=== PATIENT | female | born 1965 | race Caucasian/White ===

== ENCOUNTER 2020-06-08 11:46 | Inpatient (IN) | payer OTHER ==
[2020-06-08 12:54] VITALS: BMI 40.8
[2020-06-08] MEDS ORDERED: MENTHOL/PHENOL 1 EACH UD MM PRN (15:35)
[2020-06-08] MEDS ORDERED: chlordiazePOXIDE HCL 25 MG CAPSULE PO PRN (15:35)
[2020-06-08] MEDS ORDERED: IBUPROFEN 400 MG TABLET (FP) PO PRN (15:35)
[2020-06-08] MEDS ORDERED: BISMUTH SUBSALICYLATE 262 MG/15 ML BTL PO PRN (15:35)
[2020-06-08] MEDS ORDERED: MAGNESIUM HYDROX 2400MG/30ML ORAL SUSPENSION 30 ML CUP PO PRN (15:35)
[2020-06-08] MEDS ORDERED: MAG HYDROX/AL HYDROX/SIMETH 30 ML UNIT-DOSE CUP PO PRN (15:35)
[2020-06-08] MEDS ORDERED: ACETAMINOPHEN 325 MG TABLET (FP) PO PRN (15:35)
[2020-06-08] MEDS ORDERED: NICOTINE POLACRILEX 2 MG GUM BUC PRN (15:35)
[2020-06-08] MEDS ORDERED: METHOCARBAMOL 500 MG TABLET PO PRN (15:35)
[2020-06-08] MEDS ORDERED: MAGNESIUM CITRATE 300 ML BOTTLE PO PRN (15:35)
[2020-06-08] MEDS: chlordiazePOXIDE HCL 25 MG CAPSULE PO SCH ×2 (18:07→22:39)
[2020-06-08] MEDS: hydrOXYzine PAMOATE 25 MG CAPSULE (FP) PO SCH ×2 (18:07→22:39)
[2020-06-08] MEDS: ACETAMINOPHEN 325 MG TABLET (FP) PO PRN (18:09)
[2020-06-08] MEDS: MELATONIN 5 MG TABLETS PO SCH (22:39)
[2020-06-08] MEDS: THIAMINE HCL 100 MG TABLET (FP) PO SCH (22:39)
[2020-06-09] MEDS: ONDANSETRON *ODT* 4 MG TABLET SL PRN ×2 (03:59→14:15)
[2020-06-09] MEDS: hydrOXYzine PAMOATE 25 MG CAPSULE (FP) PO SCH ×5 (06:08→22:09)
[2020-06-09] MEDS: chlordiazePOXIDE HCL 25 MG CAPSULE PO SCH ×4 (06:09→22:10)
[2020-06-09] MEDS: amLODIPine BESYLATE 5 MG TABLET (FP) PO SCH (11:01)
[2020-06-09] MEDS: PRENATAL VITAMINS W/ FOLIC ACID TABLET (FP) PO SCH (11:01)
[2020-06-09 12:44] LABS: POTASSIUM 3.6 mmol/L (3.5-5.1)
[2020-06-09 12:45] LABS: HEMATOCRIT 38.3 % (32.4-45.2); HEMOGLOBIN 13.1 GM/dL (10.7-15.3); MCH 32.5 pg (25.7-33.7); MCHC 34.2 g/dl (32.0-36.0); MEAN CELL VOLUME 94.9 fl (80-96); MEAN PLT VOLUME 7.4 fl (7.5-11.1); PLATELET COUNT 235 K/MM3 (134-434); RBC 4.04 M/mm3 (3.60-5.2); RDW 15.1 % (11.6-15.6)
[2020-06-09 12:54] LABS: ALBUMIN 3.4 g/dl (3.4-5.0); BLOOD UREA NITROGEN 12.1 mg/dL (7-18); CALCIUM 8.9 mg/dL (8.5-10.1)
[2020-06-09 12:57] LABS: CREATININE 0.8 mg/dL (0.55-1.3)
[2020-06-09 12:58] LABS: BILIRUBIN,TOTAL 0.8 mg/dL (0.2-1)
[2020-06-09 12:59] LABS: TOT PROT 6.2 g/dl (6.4-8.2)
[2020-06-09] MEDS: FAMOTIDINE 20 MG TABLET PO SCH ×2 (14:47→22:09)
[2020-06-09] MEDS: GABAPENTIN 300 MG CAPSULE PO SCH ×2 (14:47→22:09)
[2020-06-09] MEDS: QUEtiapine FUMARATE 200 MG TABLET PO SCH (22:09)
[2020-06-09] MEDS: MELATONIN 5 MG TABLETS PO SCH (22:09)
[2020-06-09] MEDS: THIAMINE HCL 100 MG TABLET (FP) PO SCH (22:09)
[2020-06-10] MEDS: chlordiazePOXIDE HCL 25 MG CAPSULE PO SCH ×4 (07:06→22:11)
[2020-06-10] MEDS: GABAPENTIN 300 MG CAPSULE PO SCH ×3 (07:07→22:11)
[2020-06-10] MEDS: hydrOXYzine PAMOATE 25 MG CAPSULE (FP) PO SCH ×2 (07:08→10:13)
[2020-06-10] MEDS: FAMOTIDINE 20 MG TABLET PO SCH ×2 (10:13→22:11)
[2020-06-10] MEDS: amLODIPine BESYLATE 5 MG TABLET (FP) PO SCH (10:13)
[2020-06-10] MEDS: PRENATAL VITAMINS W/ FOLIC ACID TABLET (FP) PO SCH (10:13)
[2020-06-10] MEDS ORDERED: hydrOXYzine PAMOATE 25 MG CAPSULE (FP) PO PRN (11:00)
[2020-06-10] MEDS: QUEtiapine FUMARATE 200 MG TABLET PO SCH (22:11)
[2020-06-10] MEDS: THIAMINE HCL 100 MG TABLET (FP) PO SCH (22:11)
[2020-06-10] MEDS: MELATONIN 5 MG TABLETS PO SCH (22:12)
[2020-06-11] MEDS ORDERED: chlordiazePOXIDE HCL 10 MG CAPSULE PO PRN
[2020-06-11] MEDS: GABAPENTIN 300 MG CAPSULE PO SCH ×4 (06:25→22:02)
[2020-06-11] MEDS: chlordiazePOXIDE HCL 10 MG CAPSULE PO SCH ×4 (06:25→22:02)
[2020-06-11] MEDS: FAMOTIDINE 20 MG TABLET PO SCH ×2 (10:07→22:02)
[2020-06-11] MEDS: amLODIPine BESYLATE 5 MG TABLET (FP) PO SCH (10:07)
[2020-06-11] MEDS: PRENATAL VITAMINS W/ FOLIC ACID TABLET (FP) PO SCH (10:09)
[2020-06-11] MEDS: QUEtiapine FUMARATE 200 MG TABLET PO SCH (22:02)
[2020-06-11] MEDS: THIAMINE HCL 100 MG TABLET (FP) PO SCH (22:02)
[2020-06-12] MEDS: MELATONIN 5 MG TABLETS PO SCH ×2 (00:13→22:08)
[2020-06-12] MEDS: GABAPENTIN 300 MG CAPSULE PO SCH ×3 (06:49→22:08)
[2020-06-12] MEDS: chlordiazePOXIDE HCL 10 MG CAPSULE PO SCH ×2 (06:50→18:26)
[2020-06-12] MEDS: amLODIPine BESYLATE 5 MG TABLET (FP) PO SCH (10:37)
[2020-06-12] MEDS: PRENATAL VITAMINS W/ FOLIC ACID TABLET (FP) PO SCH (10:37)
[2020-06-12] MEDS: FAMOTIDINE 20 MG TABLET PO SCH ×2 (10:37→22:08)
[2020-06-12] MEDS: THIAMINE HCL 100 MG TABLET (FP) PO SCH (22:08)
[2020-06-12] MEDS: QUEtiapine FUMARATE 200 MG TABLET PO SCH (22:08)
[2020-06-13] MEDS ORDERED: chlordiazePOXIDE HCL 10 MG CAPSULE PO ONE (05:00)
[2020-06-13] MEDS: GABAPENTIN 300 MG CAPSULE PO SCH ×3 (06:47→21:53)
[2020-06-13] MEDS: amLODIPine BESYLATE 5 MG TABLET (FP) PO SCH (09:47)
[2020-06-13] MEDS: FAMOTIDINE 20 MG TABLET PO SCH ×2 (09:47→21:54)
[2020-06-13] MEDS: PRENATAL VITAMINS W/ FOLIC ACID TABLET (FP) PO SCH (09:47)
[2020-06-13] MEDS: MELATONIN 5 MG TABLETS PO SCH (21:47)
[2020-06-13] MEDS: QUEtiapine FUMARATE 200 MG TABLET PO SCH (21:53)
[2020-06-13] MEDS: THIAMINE HCL 100 MG TABLET (FP) PO SCH (21:53)
[2020-06-14] MEDS: GABAPENTIN 300 MG CAPSULE PO SCH ×3 (06:38→21:10)
[2020-06-14] MEDS: PRENATAL VITAMINS W/ FOLIC ACID TABLET (FP) PO SCH (10:20)
[2020-06-14] MEDS: amLODIPine BESYLATE 5 MG TABLET (FP) PO SCH (10:20)
[2020-06-14] MEDS: FAMOTIDINE 20 MG TABLET PO SCH ×2 (10:20→21:10)
[2020-06-14] MEDS: ACETAMINOPHEN 325 MG TABLET (FP) PO PRN (10:21)
[2020-06-14] MEDS: QUEtiapine FUMARATE 200 MG TABLET PO SCH (21:10)
[2020-06-14] MEDS: THIAMINE HCL 100 MG TABLET (FP) PO SCH (21:10)
[2020-06-14] MEDS: MELATONIN 5 MG TABLETS PO SCH (21:20)
[2020-06-15] MEDS: GABAPENTIN 300 MG CAPSULE PO SCH ×3 (06:27→23:49)
[2020-06-15 07:17] VITALS: TEMP 96.8
[2020-06-15] MEDS: FAMOTIDINE 20 MG TABLET PO SCH ×2 (10:11→23:50)
[2020-06-15] MEDS: amLODIPine BESYLATE 5 MG TABLET (FP) PO SCH (10:11)
[2020-06-15] MEDS: PRENATAL VITAMINS W/ FOLIC ACID TABLET (FP) PO SCH (10:11)
[2020-06-15 11:27] VITALS: PULSE 92
[2020-06-15] MEDS ORDERED: COLLOIDAL OATMEAL 1 BAR EACH TP PRN (14:02)
[2020-06-15 15:37] VITALS: BP 134/90
[2020-06-15] MEDS: MELATONIN 5 MG TABLETS PO SCH (23:49)
[2020-06-15] MEDS: QUEtiapine FUMARATE 200 MG TABLET PO SCH (23:50)
[2020-06-15] MEDS: THIAMINE HCL 100 MG TABLET (FP) PO SCH (23:50)
[2020-06-16] MEDS: GABAPENTIN 300 MG CAPSULE PO SCH (06:41)
== END 2020-06-16 09:00 | disposition short-term general hospital (02) | DRG 895 ==
LOC: YASAS 11:46 → Y6N 15:15 → UNDOADMIN 15:15 → Y6N 06-09 12:19 → UNDODISIN 06-13 12:11 → Y6N 06-13 14:01 → Y5N 06-13 14:01 → UNDODISIN 06-15 22:30
PROVIDERS: ADMIT Allergy & Immunology; ATTEND Allergy & Immunology
PROC: HZ42ZZZ Group Counseling for Substance Abuse Treatment, Cognitive-Behavioral (ICD-10-PCS; principal; 2020-06-13)
DX: F10.20 Alcohol dependence, uncomplicated (principal); Z68.41 Body mass index [BMI] 40.0-44.9, adult; F17.210 Nicotine dependence, cigarettes, uncomplicated; F10.282 Alcohol dependence with alcohol-induced sleep disorder; F25.9 Schizoaffective disorder, unspecified; I10 Essential (primary) hypertension; K21.9 Gastro-esophageal reflux disease without esophagitis; H26.9 Unspecified cataract; E66.01 Morbid (severe) obesity due to excess calories; Z62.810 Personal history of physical and sexual abuse in childhood; Z86.79 Personal history of other diseases of the circulatory system; Z91.5 Personal history of self-harm
CPT/HCPCS: 36415; 80053; 81025; 83036; 85027; 86780; 93005; 93010; C9803; Q0162; U0003

== ENCOUNTER 2020-06-16 15:34 | Inpatient (IN) | payer OTHER ==
[2020-06-16 16:10] VITALS: BMI 39.2
[2020-06-16] MEDS ORDERED: MAG HYDROX/AL HYDROX/SIMETH 30 ML UNIT-DOSE CUP PO PRN (16:13)
[2020-06-16] MEDS ORDERED: P-EPHED 60MG/TRIPROLIDI 2.5MG TABLET PO PRN (16:13)
[2020-06-16] MEDS ORDERED: MAGNESIUM HYDROX 2400MG/30ML ORAL SUSPENSION 30 ML CUP PO PRN (16:13)
[2020-06-16] MEDS ORDERED: guaiFENesin 200 MG/10 ML 10 ML UNIT-DOSE CUPS PO PRN (16:13)
[2020-06-16] MEDS ORDERED: MENTHOL/PHENOL 1 EACH UD MM PRN (16:13)
[2020-06-16] MEDS ORDERED: ACETAMINOPHEN 325 MG TABLET (FP) PO PRN (16:13)
[2020-06-16] MEDS ORDERED: LOPERAMIDE HCL 2 MG CAPSULE PO PRN (16:13)
[2020-06-16] MEDS ORDERED: IBUPROFEN 400 MG TABLET (FP) PO PRN (16:13)
[2020-06-16] MEDS ORDERED: MAGNESIUM CITRATE 300 ML BOTTLE PO PRN (16:13)
[2020-06-16] MEDS: hydrOXYzine PAMOATE 25 MG CAPSULE (FP) PO SCH ×2 (17:36→21:35)
[2020-06-16] MEDS: THIAMINE HCL 100 MG TABLET (FP) PO SCH (21:31)
[2020-06-16] MEDS: GABAPENTIN 400 MG CAPSULE PO SCH (21:31)
[2020-06-16] MEDS: FAMOTIDINE 20 MG TABLET PO SCH (21:31)
[2020-06-16] MEDS: MELATONIN 5 MG TABLETS PO SCH (21:31)
[2020-06-16] MEDS: QUEtiapine FUMARATE 400 MG TABLET PO SCH (21:31)
[2020-06-17] MEDS: GABAPENTIN 400 MG CAPSULE PO SCH ×3 (06:20→22:10)
[2020-06-17] MEDS: hydrOXYzine PAMOATE 25 MG CAPSULE (FP) PO SCH ×5 (06:20→22:11)
[2020-06-17] MEDS: amLODIPine BESYLATE 5 MG TABLET (FP) PO SCH (09:54)
[2020-06-17] MEDS: FAMOTIDINE 20 MG TABLET PO SCH ×2 (09:54→22:12)
[2020-06-17] MEDS: PRENATAL VITAMINS W/ FOLIC ACID TABLET (FP) PO SCH (09:54)
[2020-06-17] MEDS: THIAMINE HCL 100 MG TABLET (FP) PO SCH (22:10)
[2020-06-17] MEDS: MELATONIN 5 MG TABLETS PO SCH (22:10)
[2020-06-17] MEDS: QUEtiapine FUMARATE 400 MG TABLET PO SCH (22:10)
[2020-06-18] MEDS: GABAPENTIN 400 MG CAPSULE PO SCH ×3 (06:02→21:28)
[2020-06-18] MEDS: hydrOXYzine PAMOATE 25 MG CAPSULE (FP) PO SCH ×5 (06:02→21:29)
[2020-06-18] MEDS: amLODIPine BESYLATE 5 MG TABLET (FP) PO SCH (10:24)
[2020-06-18] MEDS: FAMOTIDINE 20 MG TABLET PO SCH ×2 (10:24→21:28)
[2020-06-18] MEDS: PRENATAL VITAMINS W/ FOLIC ACID TABLET (FP) PO SCH (10:24)
[2020-06-18] MEDS: QUEtiapine FUMARATE 400 MG TABLET PO SCH (21:28)
[2020-06-18] MEDS: THIAMINE HCL 100 MG TABLET (FP) PO SCH (21:28)
[2020-06-18] MEDS: MELATONIN 5 MG TABLETS PO SCH (21:28)
[2020-06-19] MEDS: GABAPENTIN 400 MG CAPSULE PO SCH ×3 (06:32→21:41)
[2020-06-19] MEDS: hydrOXYzine PAMOATE 25 MG CAPSULE (FP) PO SCH ×5 (06:32→21:41)
[2020-06-19] MEDS ORDERED: MASKS NR ONE (06:34)
[2020-06-19] MEDS: PRENATAL VITAMINS W/ FOLIC ACID TABLET (FP) PO SCH (10:03)
[2020-06-19] MEDS: amLODIPine BESYLATE 5 MG TABLET (FP) PO SCH (10:04)
[2020-06-19] MEDS: FAMOTIDINE 20 MG TABLET PO SCH ×2 (10:04→21:41)
[2020-06-19] MEDS: THIAMINE HCL 100 MG TABLET (FP) PO SCH (21:41)
[2020-06-19] MEDS: MELATONIN 5 MG TABLETS PO SCH (21:41)
[2020-06-19] MEDS: QUEtiapine FUMARATE 400 MG TABLET PO SCH (21:41)
[2020-06-20] MEDS: GABAPENTIN 400 MG CAPSULE PO SCH ×3 (06:33→21:29)
[2020-06-20] MEDS: hydrOXYzine PAMOATE 25 MG CAPSULE (FP) PO SCH ×5 (06:33→21:31)
[2020-06-20] MEDS: PRENATAL VITAMINS W/ FOLIC ACID TABLET (FP) PO SCH (10:08)
[2020-06-20] MEDS: amLODIPine BESYLATE 5 MG TABLET (FP) PO SCH (10:08)
[2020-06-20] MEDS: FAMOTIDINE 20 MG TABLET PO SCH ×2 (10:08→21:29)
[2020-06-20 13:08] LABS: SARS-CoV-2 NAA Not Detected (Not Detected)
[2020-06-20] MEDS: MELATONIN 5 MG TABLETS PO SCH (21:29)
[2020-06-20] MEDS: QUEtiapine FUMARATE 400 MG TABLET PO SCH (21:29)
[2020-06-20] MEDS: THIAMINE HCL 100 MG TABLET (FP) PO SCH (21:30)
[2020-06-21] MEDS: hydrOXYzine PAMOATE 25 MG CAPSULE (FP) PO SCH ×5 (06:12→21:23)
[2020-06-21] MEDS: GABAPENTIN 400 MG CAPSULE PO SCH ×3 (06:12→21:23)
[2020-06-21] MEDS: PRENATAL VITAMINS W/ FOLIC ACID TABLET (FP) PO SCH (10:25)
[2020-06-21] MEDS: amLODIPine BESYLATE 5 MG TABLET (FP) PO SCH (10:25)
[2020-06-21] MEDS: FAMOTIDINE 20 MG TABLET PO SCH ×2 (10:25→21:23)
[2020-06-21] MEDS: MELATONIN 5 MG TABLETS PO SCH (21:23)
[2020-06-21] MEDS: QUEtiapine FUMARATE 400 MG TABLET PO SCH (21:23)
[2020-06-21] MEDS: THIAMINE HCL 100 MG TABLET (FP) PO SCH (21:23)
[2020-06-22] MEDS: GABAPENTIN 400 MG CAPSULE PO SCH ×3 (06:01→21:09)
[2020-06-22] MEDS: hydrOXYzine PAMOATE 25 MG CAPSULE (FP) PO SCH ×5 (06:01→21:09)
[2020-06-22] MEDS: amLODIPine BESYLATE 5 MG TABLET (FP) PO SCH (10:28)
[2020-06-22] MEDS: PRENATAL VITAMINS W/ FOLIC ACID TABLET (FP) PO SCH (10:28)
[2020-06-22] MEDS: FAMOTIDINE 20 MG TABLET PO SCH ×2 (10:28→21:08)
[2020-06-22] MEDS: THIAMINE HCL 100 MG TABLET (FP) PO SCH (21:06)
[2020-06-22] MEDS: QUEtiapine FUMARATE 400 MG TABLET PO SCH (21:09)
[2020-06-22] MEDS: MELATONIN 5 MG TABLETS PO SCH (21:09)
[2020-06-23] MEDS: GABAPENTIN 400 MG CAPSULE PO SCH (06:43)
[2020-06-23] MEDS: hydrOXYzine PAMOATE 25 MG CAPSULE (FP) PO SCH ×2 (06:43→09:20)
[2020-06-23 07:01] VITALS: BP 134/90; PULSE 87; TEMP 97.7
[2020-06-23] MEDS: amLODIPine BESYLATE 5 MG TABLET (FP) PO SCH (09:20)
[2020-06-23] MEDS: FAMOTIDINE 20 MG TABLET PO SCH (09:20)
[2020-06-23] MEDS: PRENATAL VITAMINS W/ FOLIC ACID TABLET (FP) PO SCH (09:20)
[2020-06-23] MEDS ORDERED: PT OWN MED DRAWER 7, Y5N ONE (10:18)
== END 2020-06-23 10:20 | disposition home or self-care (01) | DRG 895 ==
LOC: YASAS 15:34 → Y5N 16:37
PROVIDERS: ADMIT Allergy & Immunology; ATTEND Allergy & Immunology
PROC: HZ42ZZZ Group Counseling for Substance Abuse Treatment, Cognitive-Behavioral (ICD-10-PCS; principal; 2020-06-16)
DX: F10.20 Alcohol dependence, uncomplicated (principal); F10.282 Alcohol dependence with alcohol-induced sleep disorder; F25.9 Schizoaffective disorder, unspecified; F19.24 Other psychoactive substance dependence with psychoactive substance-induced mood disorder; I10 Essential (primary) hypertension; K21.9 Gastro-esophageal reflux disease without esophagitis; H26.9 Unspecified cataract; I34.1 Nonrheumatic mitral (valve) prolapse; E66.9 Obesity, unspecified; Z68.39 Body mass index [BMI] 39.0-39.9, adult; Z62.810 Personal history of physical and sexual abuse in childhood; Z91.410 Personal history of adult physical and sexual abuse
CPT/HCPCS: 36415; 80053; 81025; 83036; 85027; 86780; 93005; 93010; C9803; Q0162; U0003; U0005

== ENCOUNTER 2020-08-03 20:06 | Inpatient (IN) | payer OTHER ==
[2020-08-03 20:38] VITALS: BMI 40.4
[2020-08-03] MEDS ORDERED: MENTHOL/PHENOL 1 EACH UD MM PRN (21:35)
[2020-08-03] MEDS ORDERED: MAGNESIUM HYDROX 2400MG/30ML ORAL SUSPENSION 30 ML CUP PO PRN (21:35)
[2020-08-03] MEDS ORDERED: ACETAMINOPHEN 325 MG TABLET (FP) PO PRN ×2 (21:35)
[2020-08-03] MEDS ORDERED: MAGNESIUM CITRATE 300 ML BOTTLE PO PRN (21:35)
[2020-08-03] MEDS ORDERED: BISMUTH SUBSALICYLATE 524 MG/30 ML PO PRN (21:35)
[2020-08-03] MEDS ORDERED: hydrOXYzine PAMOATE 25 MG CAPSULE (FP) PO PRN (21:35)
[2020-08-03] MEDS ORDERED: IBUPROFEN 400 MG TABLET (FP) PO PRN (21:35)
[2020-08-03] MEDS ORDERED: chlordiazePOXIDE HCL 25 MG CAPSULE PO PRN (21:37)
[2020-08-03] MEDS: MELATONIN 5 MG TABLETS PO SCH (22:29)
[2020-08-03] MEDS: chlordiazePOXIDE HCL 25 MG CAPSULE PO SCH (22:29)
[2020-08-03] MEDS: THIAMINE HCL 100 MG TABLET (FP) PO SCH (22:33)
[2020-08-04] MEDS: ONDANSETRON *ODT* 4 MG TABLET SL PRN (02:36)
[2020-08-04] MEDS: METHOCARBAMOL 500 MG TABLET PO PRN (02:36)
[2020-08-04] MEDS: chlordiazePOXIDE HCL 25 MG CAPSULE PO SCH ×4 (05:38→22:21)
[2020-08-04] MEDS: MAG HYDROX/AL HYDROX/SIMETH 30 ML UNIT-DOSE CUP PO PRN (05:40)
[2020-08-04] MEDS ORDERED: QUEtiapine FUMARATE 100 MG TABLET (FP) PO ONE (08:18)
[2020-08-04 09:48] LABS: HEMATOCRIT 38.9 % (32.4-45.2); MCH 31.7 pg (25.7-33.7); MCHC 33.5 g/dl (32.0-36.0); MEAN CELL VOLUME 94.7 fl (80-96); MEAN PLT VOLUME 7.5 fl (7.5-11.1); PLATELET COUNT 217 K/MM3 (134-434); RBC 4.11 M/mm3 (3.60-5.2); RDW 13.9 % (11.6-15.6); WHITE BLOOD COUNT 7.6 K/mm3 (4.0-10.0)
[2020-08-04 10:16] LABS: CALCIUM 8.5 mg/dL (8.5-10.1)
[2020-08-04 10:17] LABS: ALBUMIN 3.4 g/dl (3.4-5.0); BLOOD UREA NITROGEN 15.7 mg/dL (7-18)
[2020-08-04] MEDS: ONDANSETRON *ODT* 4 MG TABLET SL ONE ×2 (10:20→10:25)
[2020-08-04] MEDS: FAMOTIDINE 20 MG TABLET PO SCH ×2 (10:20→22:21)
[2020-08-04 10:21] LABS: BILIRUBIN,TOTAL 0.6 mg/dL (0.2-1); TOT PROT 6.4 g/dl (6.4-8.2)
[2020-08-04] MEDS: PRENATAL VITAMINS W/ FOLIC ACID TABLET (FP) PO SCH (10:23)
[2020-08-04 10:26] LABS: CREATININE 0.7 mg/dL (0.55-1.3)
[2020-08-04] MEDS: amLODIPine BESYLATE 5 MG TABLET (FP) PO SCH (10:31)
[2020-08-04] MEDS: hydrOXYzine PAMOATE 50 MG CAPSULE (FP) PO SCH ×3 (11:01→22:26)
[2020-08-04] MEDS: GABAPENTIN 400 MG CAPSULE PO SCH ×2 (14:05→22:21)
[2020-08-04] MEDS: QUEtiapine FUMARATE 200 MG TABLET PO SCH (22:21)
[2020-08-04] MEDS: THIAMINE HCL 100 MG TABLET (FP) PO SCH (22:21)
[2020-08-04] MEDS: MELATONIN 5 MG TABLETS PO SCH (22:27)
[2020-08-05] MEDS: GABAPENTIN 400 MG CAPSULE PO SCH ×3 (05:48→22:08)
[2020-08-05] MEDS: chlordiazePOXIDE HCL 10 MG CAPSULE PO SCH ×4 (06:21→22:08)
[2020-08-05] MEDS: hydrOXYzine PAMOATE 50 MG CAPSULE (FP) PO SCH ×4 (06:21→22:09)
[2020-08-05] MEDS: PRENATAL VITAMINS W/ FOLIC ACID TABLET (FP) PO SCH (10:22)
[2020-08-05] MEDS: FAMOTIDINE 20 MG TABLET PO SCH ×2 (10:22→22:09)
[2020-08-05] MEDS: amLODIPine BESYLATE 5 MG TABLET (FP) PO SCH (10:22)
[2020-08-05] MEDS: THIAMINE HCL 100 MG TABLET (FP) PO SCH (22:08)
[2020-08-05] MEDS: QUEtiapine FUMARATE 200 MG TABLET PO SCH (22:08)
[2020-08-05] MEDS: MELATONIN 5 MG TABLETS PO SCH (22:09)
[2020-08-06] MEDS ORDERED: chlordiazePOXIDE HCL 10 MG CAPSULE PO PRN
[2020-08-06] MEDS: ONDANSETRON *ODT* 4 MG TABLET SL PRN ×2 (03:25→14:18)
[2020-08-06] MEDS: chlordiazePOXIDE HCL 10 MG CAPSULE PO SCH ×2 (07:08→18:32)
[2020-08-06] MEDS: GABAPENTIN 400 MG CAPSULE PO SCH ×3 (07:08→21:56)
[2020-08-06] MEDS: hydrOXYzine PAMOATE 50 MG CAPSULE (FP) PO SCH ×4 (07:09→21:56)
[2020-08-06] MEDS: METHOCARBAMOL 500 MG TABLET PO PRN ×2 (08:05→20:08)
[2020-08-06] MEDS: FAMOTIDINE 20 MG TABLET PO SCH ×2 (10:22→21:56)
[2020-08-06] MEDS: PRENATAL VITAMINS W/ FOLIC ACID TABLET (FP) PO SCH (10:22)
[2020-08-06] MEDS: amLODIPine BESYLATE 5 MG TABLET (FP) PO SCH (10:22)
[2020-08-06] MEDS: MAG HYDROX/AL HYDROX/SIMETH 30 ML UNIT-DOSE CUP PO PRN (16:56)
[2020-08-06] MEDS: QUEtiapine FUMARATE 200 MG TABLET PO SCH (21:56)
[2020-08-06] MEDS: MELATONIN 5 MG TABLETS PO SCH (21:56)
[2020-08-06] MEDS: THIAMINE HCL 100 MG TABLET (FP) PO SCH (21:56)
[2020-08-07] MEDS ORDERED: chlordiazePOXIDE HCL 10 MG CAPSULE PO ONE (05:00)
[2020-08-07] MEDS: GABAPENTIN 400 MG CAPSULE PO SCH ×2 (06:14→15:10)
[2020-08-07] MEDS ORDERED: COVID-19 VAC,AD26(JANSSEN)/PF 0.5 ML IM ONE (09:00)
[2020-08-07 10:07] LABS: SARS-CoV-2 NAA Not Detected (Not Detected)
[2020-08-07] MEDS: FAMOTIDINE 20 MG TABLET PO SCH (10:34)
[2020-08-07] MEDS: amLODIPine BESYLATE 5 MG TABLET (FP) PO SCH (10:34)
[2020-08-07] MEDS: PRENATAL VITAMINS W/ FOLIC ACID TABLET (FP) PO SCH (10:34)
[2020-08-07] MEDS: METHOCARBAMOL 500 MG TABLET PO PRN (10:34)
[2020-08-07 19:03] VITALS: BP 119/72; PULSE 74; TEMP 98.4
== END 2020-08-07 16:55 | disposition other institution (70) | DRG 897 ==
LOC: YASAS 20:06 → Y6N 21:24
PROVIDERS: ADMIT Allergy & Immunology; ATTEND Allergy & Immunology
PROC: HZ2ZZZZ Detoxification Services for Substance Abuse Treatment (ICD-10-PCS; principal; 2020-08-03)
DX: F10.230 Alcohol dependence with withdrawal, uncomplicated (principal); Z68.41 Body mass index [BMI] 40.0-44.9, adult; F10.280 Alcohol dependence with alcohol-induced anxiety disorder; F19.24 Other psychoactive substance dependence with psychoactive substance-induced mood disorder; F25.9 Schizoaffective disorder, unspecified; I10 Essential (primary) hypertension; I34.1 Nonrheumatic mitral (valve) prolapse; K21.9 Gastro-esophageal reflux disease without esophagitis; H26.9 Unspecified cataract; E66.01 Morbid (severe) obesity due to excess calories; Z62.810 Personal history of physical and sexual abuse in childhood; Z91.410 Personal history of adult physical and sexual abuse; Z98.890 Other specified postprocedural states
CPT/HCPCS: 36415; 80053; 85027; 86780; C9803; Q0162; U0003; U0005

== ENCOUNTER 2021-01-21 17:44 | Inpatient (IN) | payer OTHER ==
[2021-01-21 19:53] VITALS: BMI 40.6
[2021-01-21] MEDS ORDERED: DICYCLOMINE HCL 10 MG CAPSULE PO PRN (20:47)
[2021-01-21] MEDS ORDERED: MENTHOL/PHENOL 1 EACH UD MM PRN (20:47)
[2021-01-21] MEDS ORDERED: MAGNESIUM CITRATE 300 ML BOTTLE PO PRN (20:47)
[2021-01-21] MEDS ORDERED: ONDANSETRON *ODT* 4 MG TABLET SL PRN (20:47)
[2021-01-21] MEDS ORDERED: BISMUTH SUBSALICYLATE 524 MG/30 ML PO PRN (20:47)
[2021-01-21] MEDS ORDERED: IBUPROFEN 400 MG TABLET (FP) PO PRN (20:47)
[2021-01-21] MEDS ORDERED: MAG HYDROX/AL HYDROX/SIMETH 30 ML UNIT-DOSE CUP PO PRN (20:47)
[2021-01-21] MEDS ORDERED: MAGNESIUM HYDROX 2400MG/30ML ORAL SUSPENSION 30 ML CUP PO PRN (20:47)
[2021-01-21] MEDS ORDERED: LOPERAMIDE HCL 2 MG CAPSULE PO PRN (20:47)
[2021-01-21] MEDS ORDERED: ACETAMINOPHEN 325 MG TABLET (FP) PO PRN ×2 (20:47)
[2021-01-21] MEDS ORDERED: diazePAM 5 MG TABLET PO PRN (21:00)
[2021-01-21] MEDS ORDERED: hydrOXYzine PAMOATE 50 MG CAPSULE (FP) PO ONE (22:00)
[2021-01-21] MEDS ORDERED: QUEtiapine FUMARATE 100 MG TABLET (FP) PO ONE (22:00)
[2021-01-22] MEDS ORDERED: QUEtiapine FUMARATE 400 MG TABLET PO ONE (01:15)
[2021-01-22] MEDS: METHOCARBAMOL 500 MG TABLET PO PRN ×3 (01:16→17:20)
[2021-01-22] MEDS: THIAMINE HCL 100 MG TABLET (FP) PO SCH ×2 (01:16→22:17)
[2021-01-22] MEDS: FAMOTIDINE 20 MG TABLET PO SCH ×3 (01:16→22:18)
[2021-01-22 10:45] LABS: HEMATOCRIT 35.8 % (32.4-45.2); HEMOGLOBIN 12.2 GM/dL (10.7-15.3); MCH 31.5 pg (25.7-33.7); MCHC 34.2 g/dl (32.0-36.0); MEAN CELL VOLUME 92.1 fl (80-96); MEAN PLT VOLUME 7.5 fl (7.5-11.1); PLATELET COUNT 278 10^3/uL (134-434); RBC 3.89 M/mm3 (3.60-5.2); RDW 14.1 % (11.6-15.6); WHITE BLOOD COUNT 7.5 K/mm3 (4.0-10.0)
[2021-01-22] MEDS ORDERED: LORazepam 1 MG TABLET PO PRN (10:54)
[2021-01-22 11:05] LABS: BLOOD UREA NITROGEN 13.1 mg/dL (7-18); CALCIUM 8.3 mg/dL (8.5-10.1)
[2021-01-22] MEDS: amLODIPine BESYLATE 5 MG TABLET (FP) PO SCH (11:08)
[2021-01-22] MEDS: PRENATAL VITAMINS W/ FOLIC ACID TABLET (FP) PO SCH (11:08)
[2021-01-22 11:09] LABS: CREATININE 0.9 mg/dL (0.55-1.3)
[2021-01-22 11:10] LABS: BILIRUBIN,TOTAL 0.8 mg/dL (0.2-1); TOT PROT 5.9 g/dl (6.4-8.2)
[2021-01-22] MEDS: LORazepam 2 MG TABLET PO SCH ×3 (12:16→22:18)
[2021-01-22] MEDS: GABAPENTIN 300 MG CAPSULE PO SCH ×2 (13:25→22:18)
[2021-01-22] MEDS: QUEtiapine FUMARATE 400 MG TABLET PO SCH (22:18)
[2021-01-23] MEDS: GABAPENTIN 300 MG CAPSULE PO SCH ×3 (07:29→22:10)
[2021-01-23] MEDS: LORazepam 2 MG TABLET PO SCH ×4 (07:29→22:10)
[2021-01-23] MEDS: METHOCARBAMOL 500 MG TABLET PO PRN (07:30)
[2021-01-23] MEDS: amLODIPine BESYLATE 5 MG TABLET (FP) PO SCH (10:26)
[2021-01-23] MEDS: FAMOTIDINE 20 MG TABLET PO SCH ×2 (10:26→22:10)
[2021-01-23] MEDS: PRENATAL VITAMINS W/ FOLIC ACID TABLET (FP) PO SCH (10:26)
[2021-01-23] MEDS: THIAMINE HCL 100 MG TABLET (FP) PO SCH (22:10)
[2021-01-23] MEDS: QUEtiapine FUMARATE 400 MG TABLET PO SCH (22:10)
[2021-01-24] MEDS: LORazepam 1 MG TABLET PO SCH ×4 (05:30→22:06)
[2021-01-24] MEDS: GABAPENTIN 300 MG CAPSULE PO SCH ×3 (05:30→22:05)
[2021-01-24] MEDS: METHOCARBAMOL 500 MG TABLET PO PRN (10:53)
[2021-01-24] MEDS: FAMOTIDINE 20 MG TABLET PO SCH ×2 (10:53→22:04)
[2021-01-24] MEDS: PRENATAL VITAMINS W/ FOLIC ACID TABLET (FP) PO SCH (10:53)
[2021-01-24] MEDS: amLODIPine BESYLATE 5 MG TABLET (FP) PO SCH (10:53)
[2021-01-24] MEDS: THIAMINE HCL 100 MG TABLET (FP) PO SCH (22:04)
[2021-01-24] MEDS: QUEtiapine FUMARATE 400 MG TABLET PO SCH (22:04)
[2021-01-25] MEDS ORDERED: LORazepam 0.5 MG TABLET PO PRN
[2021-01-25] MEDS: LORazepam 0.5 MG TABLET PO SCH ×4 (06:01→22:05)
[2021-01-25] MEDS: GABAPENTIN 300 MG CAPSULE PO SCH ×3 (06:01→22:04)
[2021-01-25] MEDS: PRENATAL VITAMINS W/ FOLIC ACID TABLET (FP) PO SCH (10:38)
[2021-01-25] MEDS: FAMOTIDINE 20 MG TABLET PO SCH ×2 (10:38→22:04)
[2021-01-25] MEDS: amLODIPine BESYLATE 5 MG TABLET (FP) PO SCH (12:24)
[2021-01-25] MEDS: THIAMINE HCL 100 MG TABLET (FP) PO SCH (22:04)
[2021-01-25] MEDS: QUEtiapine FUMARATE 400 MG TABLET PO SCH (22:05)
[2021-01-25] MEDS: METHOCARBAMOL 500 MG TABLET PO PRN (22:07)
[2021-01-26] MEDS ORDERED: LORazepam 0.5 MG TABLET PO ONE (05:00)
[2021-01-26] MEDS: GABAPENTIN 300 MG CAPSULE PO SCH ×2 (05:53→14:56)
[2021-01-26] MEDS: FAMOTIDINE 20 MG TABLET PO SCH (10:25)
[2021-01-26] MEDS: amLODIPine BESYLATE 5 MG TABLET (FP) PO SCH (10:25)
[2021-01-26] MEDS: PRENATAL VITAMINS W/ FOLIC ACID TABLET (FP) PO SCH (10:25)
[2021-01-26 13:21] VITALS: BP 118/71; PULSE 90; TEMP 99.6
== END 2021-01-26 16:05 | disposition home or self-care (01) | DRG 897 ==
LOC: YASAS 17:44 → UNDOADMIN 01-22 03:52 → Y6N 01-22 03:52
PROVIDERS: ADMIT Allergy & Immunology; ATTEND Allergy & Immunology
PROC: HZ2ZZZZ Detoxification Services for Substance Abuse Treatment (ICD-10-PCS; principal; 2021-01-22)
DX: F10.230 Alcohol dependence with withdrawal, uncomplicated (principal); Z68.41 Body mass index [BMI] 40.0-44.9, adult; F10.280 Alcohol dependence with alcohol-induced anxiety disorder; F10.282 Alcohol dependence with alcohol-induced sleep disorder; F10.220 Alcohol dependence with intoxication, uncomplicated; I10 Essential (primary) hypertension; K21.9 Gastro-esophageal reflux disease without esophagitis; H26.9 Unspecified cataract; E66.01 Morbid (severe) obesity due to excess calories; Z62.810 Personal history of physical and sexual abuse in childhood; R26.89 Other abnormalities of gait and mobility; Z86.79 Personal history of other diseases of the circulatory system; Z98.890 Other specified postprocedural states
CPT/HCPCS: 36415; 80053; 85027; 86780; C9803; U0003; U0005

== ENCOUNTER 2021-04-16 12:03 | Inpatient (IN) | payer OTHER ==
[2021-04-16 13:53] VITALS: BMI 41.0
[2021-04-16] MEDS ORDERED: MENTHOL/PHENOL 1 EACH UD MM PRN (14:05)
[2021-04-16] MEDS ORDERED: MAGNESIUM CITRATE 300 ML BOTTLE PO PRN (14:05)
[2021-04-16] MEDS ORDERED: BISMUTH SUBSALICYLATE 262 MG/15 ML BTL PO PRN (14:05)
[2021-04-16] MEDS ORDERED: LORazepam 1 MG TABLET PO PRN (14:05)
[2021-04-16] MEDS ORDERED: ACETAMINOPHEN 325 MG TABLET (FP) PO PRN ×2 (14:05)
[2021-04-16] MEDS: ONDANSETRON *ODT* 4 MG TABLET SL PRN (14:27)
[2021-04-16] MEDS: PRENATAL VITAMINS W/ FOLIC ACID TABLET (FP) PO SCH (15:33)
[2021-04-16] MEDS: hydrOXYzine PAMOATE 25 MG CAPSULE (FP) PO SCH ×2 (17:54→22:25)
[2021-04-16] MEDS: METHOCARBAMOL 500 MG TABLET PO PRN (17:54)
[2021-04-16] MEDS: LORazepam 2 MG TABLET PO SCH ×2 (17:54→22:26)
[2021-04-16] MEDS: THIAMINE HCL 100 MG TABLET (FP) PO SCH (22:25)
[2021-04-16] MEDS: MELATONIN 5 MG TABLETS PO SCH (22:25)
[2021-04-16] MEDS: GABAPENTIN 300 MG CAPSULE PO SCH (22:25)
[2021-04-16] MEDS: FAMOTIDINE 20 MG TABLET PO SCH (22:25)
[2021-04-16] MEDS ORDERED: QUEtiapine FUMARATE 300 MG TABLET PO ONE (23:32)
[2021-04-17] MEDS: GABAPENTIN 300 MG CAPSULE PO SCH ×3 (07:08→22:22)
[2021-04-17] MEDS: hydrOXYzine PAMOATE 25 MG CAPSULE (FP) PO SCH ×5 (07:08→22:22)
[2021-04-17] MEDS: LORazepam 2 MG TABLET PO SCH ×4 (07:08→22:23)
[2021-04-17] MEDS: FAMOTIDINE 20 MG TABLET PO SCH ×2 (13:51→22:22)
[2021-04-17] MEDS: PRENATAL VITAMINS W/ FOLIC ACID TABLET (FP) PO SCH (13:51)
[2021-04-17] MEDS: amLODIPine BESYLATE 5 MG TABLET (FP) PO SCH (13:52)
[2021-04-17] MEDS: METHOCARBAMOL 500 MG TABLET PO PRN ×2 (13:52→22:24)
[2021-04-17] MEDS: QUEtiapine FUMARATE 300 MG TABLET PO SCH (22:22)
[2021-04-17] MEDS: MELATONIN 5 MG TABLETS PO SCH (22:22)
[2021-04-17] MEDS: THIAMINE HCL 100 MG TABLET (FP) PO SCH (22:22)
[2021-04-18] MEDS: hydrOXYzine PAMOATE 25 MG CAPSULE (FP) PO SCH ×5 (06:42→22:36)
[2021-04-18] MEDS: GABAPENTIN 300 MG CAPSULE PO SCH ×3 (06:42→22:36)
[2021-04-18] MEDS: LORazepam 1 MG TABLET PO SCH ×4 (06:42→22:36)
[2021-04-18] MEDS: amLODIPine BESYLATE 5 MG TABLET (FP) PO SCH (10:33)
[2021-04-18] MEDS: PRENATAL VITAMINS W/ FOLIC ACID TABLET (FP) PO SCH (10:33)
[2021-04-18] MEDS: FAMOTIDINE 20 MG TABLET PO SCH ×2 (10:33→22:36)
[2021-04-18 12:01] LABS: HEMATOCRIT 44.1 % (32.4-45.2); HEMOGLOBIN 14.8 GM/dL (10.7-15.3); MCHC 33.4 g/dl (32.0-36.0); MEAN CELL VOLUME 92.7 fl (80-96); MEAN PLT VOLUME 7.5 fl (7.5-11.1); PLATELET COUNT 238 10^3/uL (134-434); RBC 4.76 M/mm3 (3.60-5.2); RDW 14.7 % (11.6-15.6)
[2021-04-18 12:07] LABS: ALBUMIN 3.6 g/dl (3.4-5.0)
[2021-04-18 12:08] LABS: BLOOD UREA NITROGEN 10.9 mg/dL (7-18)
[2021-04-18 12:11] LABS: CREATININE 0.8 mg/dL (0.55-1.3)
[2021-04-18 12:12] LABS: BILIRUBIN,TOTAL 0.5 mg/dL (0.2-1)
[2021-04-18] MEDS: MAGNESIUM HYDROX 2400MG/30ML ORAL SUSPENSION 30 ML CUP PO PRN (18:17)
[2021-04-18] MEDS: QUEtiapine FUMARATE 300 MG TABLET PO SCH (22:36)
[2021-04-18] MEDS: THIAMINE HCL 100 MG TABLET (FP) PO SCH (22:36)
[2021-04-18] MEDS: MELATONIN 5 MG TABLETS PO SCH (22:36)
[2021-04-18] MEDS: METHOCARBAMOL 500 MG TABLET PO PRN (22:37)
[2021-04-19] MEDS ORDERED: LORazepam 0.5 MG TABLET PO PRN
[2021-04-19] MEDS: GABAPENTIN 300 MG CAPSULE PO SCH ×3 (06:28→22:02)
[2021-04-19] MEDS: METHOCARBAMOL 500 MG TABLET PO PRN (06:28)
[2021-04-19] MEDS: LORazepam 0.5 MG TABLET PO SCH ×4 (06:28→22:03)
[2021-04-19] MEDS: hydrOXYzine PAMOATE 25 MG CAPSULE (FP) PO SCH ×5 (07:34→22:03)
[2021-04-19] MEDS: FAMOTIDINE 20 MG TABLET PO SCH ×2 (10:37→22:02)
[2021-04-19] MEDS: PRENATAL VITAMINS W/ FOLIC ACID TABLET (FP) PO SCH (10:37)
[2021-04-19] MEDS: amLODIPine BESYLATE 5 MG TABLET (FP) PO SCH (10:37)
[2021-04-19] MEDS: MELATONIN 5 MG TABLETS PO SCH (22:02)
[2021-04-19] MEDS: QUEtiapine FUMARATE 300 MG TABLET PO SCH (22:02)
[2021-04-19] MEDS: THIAMINE HCL 100 MG TABLET (FP) PO SCH (22:02)
[2021-04-20] MEDS ORDERED: LORazepam 0.5 MG TABLET PO ONE (05:00)
[2021-04-20] MEDS: hydrOXYzine PAMOATE 25 MG CAPSULE (FP) PO SCH ×5 (06:07→21:04)
[2021-04-20] MEDS: GABAPENTIN 300 MG CAPSULE PO SCH ×3 (06:07→21:04)
[2021-04-20] MEDS: FAMOTIDINE 20 MG TABLET PO SCH ×2 (10:28→21:04)
[2021-04-20] MEDS: amLODIPine BESYLATE 5 MG TABLET (FP) PO SCH (10:28)
[2021-04-20] MEDS: PRENATAL VITAMINS W/ FOLIC ACID TABLET (FP) PO SCH (10:28)
[2021-04-20] MEDS: METHOCARBAMOL 500 MG TABLET PO PRN (17:45)
[2021-04-20] MEDS ORDERED: QUEtiapine FUMARATE 100 MG TABLET (FP) ONE (19:56)
[2021-04-20] MEDS: THIAMINE HCL 100 MG TABLET (FP) PO SCH (21:03)
[2021-04-20] MEDS: QUEtiapine FUMARATE 300 MG TABLET PO SCH (21:04)
[2021-04-20] MEDS: MELATONIN 5 MG TABLETS PO SCH (21:04)
[2021-04-21] MEDS: hydrOXYzine PAMOATE 25 MG CAPSULE (FP) PO SCH ×5 (06:07→21:05)
[2021-04-21] MEDS: GABAPENTIN 300 MG CAPSULE PO SCH ×3 (06:07→21:05)
[2021-04-21] MEDS: amLODIPine BESYLATE 5 MG TABLET (FP) PO SCH (10:03)
[2021-04-21] MEDS: FAMOTIDINE 20 MG TABLET PO SCH ×2 (10:04→21:05)
[2021-04-21] MEDS: PRENATAL VITAMINS W/ FOLIC ACID TABLET (FP) PO SCH (10:04)
[2021-04-21] MEDS ORDERED: QUEtiapine FUMARATE 200 MG TABLET PO PRN (10:23)
[2021-04-21] MEDS: QUEtiapine FUMARATE 25 MG TABLET PO PRN (10:56)
[2021-04-21] MEDS: METHOCARBAMOL 500 MG TABLET PO PRN (19:15)
[2021-04-21] MEDS: THIAMINE HCL 100 MG TABLET (FP) PO SCH (21:05)
[2021-04-21] MEDS: QUEtiapine FUMARATE 400 MG TABLET PO SCH (21:06)
[2021-04-22] MEDS: GABAPENTIN 300 MG CAPSULE PO SCH ×3 (07:45→21:28)
[2021-04-22] MEDS: hydrOXYzine PAMOATE 25 MG CAPSULE (FP) PO SCH ×3 (07:45→14:42)
[2021-04-22] MEDS: PRENATAL VITAMINS W/ FOLIC ACID TABLET (FP) PO SCH (10:47)
[2021-04-22] MEDS: amLODIPine BESYLATE 5 MG TABLET (FP) PO SCH (10:48)
[2021-04-22] MEDS: METHOCARBAMOL 500 MG TABLET PO PRN (10:48)
[2021-04-22] MEDS: FAMOTIDINE 20 MG TABLET PO SCH ×2 (10:48→21:28)
[2021-04-22] MEDS: MAG HYDROX/AL HYDROX/SIMETH 30 ML UNIT-DOSE CUP PO PRN (19:22)
[2021-04-22] MEDS: THIAMINE HCL 100 MG TABLET (FP) PO SCH (21:28)
[2021-04-22] MEDS: QUEtiapine FUMARATE 400 MG TABLET PO SCH (21:28)
[2021-04-23] MEDS: GABAPENTIN 300 MG CAPSULE PO SCH ×3 (06:57→21:18)
[2021-04-23] MEDS: ONDANSETRON *ODT* 4 MG TABLET SL PRN (07:20)
[2021-04-23] MEDS: FAMOTIDINE 20 MG TABLET PO SCH ×2 (10:15→21:19)
[2021-04-23] MEDS: PRENATAL VITAMINS W/ FOLIC ACID TABLET (FP) PO SCH (10:15)
[2021-04-23] MEDS: amLODIPine BESYLATE 5 MG TABLET (FP) PO SCH (10:15)
[2021-04-23] MEDS: QUEtiapine FUMARATE 25 MG TABLET PO PRN (10:15)
[2021-04-23] MEDS: QUEtiapine FUMARATE 50 MG TABLET PO SCH (15:59)
[2021-04-23] MEDS: QUEtiapine FUMARATE 400 MG TABLET PO SCH (21:19)
[2021-04-23] MEDS: THIAMINE HCL 100 MG TABLET (FP) PO SCH (21:19)
[2021-04-23] MEDS: IBUPROFEN 400 MG TABLET (FP) PO PRN (21:21)
[2021-04-24] MEDS: GABAPENTIN 300 MG CAPSULE PO SCH ×3 (07:05→21:43)
[2021-04-24] MEDS: ONDANSETRON *ODT* 4 MG TABLET SL PRN (07:06)
[2021-04-24] MEDS: FAMOTIDINE 20 MG TABLET PO SCH ×2 (09:48→21:43)
[2021-04-24] MEDS: PRENATAL VITAMINS W/ FOLIC ACID TABLET (FP) PO SCH (09:48)
[2021-04-24] MEDS: QUEtiapine FUMARATE 50 MG TABLET PO SCH ×2 (09:48→15:48)
[2021-04-24] MEDS: amLODIPine BESYLATE 5 MG TABLET (FP) PO SCH (09:48)
[2021-04-24] MEDS: QUEtiapine FUMARATE 400 MG TABLET PO SCH (21:43)
[2021-04-24] MEDS: THIAMINE HCL 100 MG TABLET (FP) PO SCH (21:43)
[2021-04-25] MEDS: GABAPENTIN 300 MG CAPSULE PO SCH ×3 (06:52→21:07)
[2021-04-25] MEDS: ONDANSETRON *ODT* 4 MG TABLET SL PRN ×2 (06:53→19:52)
[2021-04-25] MEDS: FAMOTIDINE 20 MG TABLET PO SCH ×2 (10:18→21:07)
[2021-04-25] MEDS: amLODIPine BESYLATE 5 MG TABLET (FP) PO SCH (10:18)
[2021-04-25] MEDS: PRENATAL VITAMINS W/ FOLIC ACID TABLET (FP) PO SCH (10:18)
[2021-04-25] MEDS: QUEtiapine FUMARATE 50 MG TABLET PO SCH ×2 (10:18→18:24)
[2021-04-25] MEDS: MAGNESIUM HYDROX 2400MG/30ML ORAL SUSPENSION 30 ML CUP PO PRN (13:11)
[2021-04-25] MEDS ORDERED: cloNIDine HCL 0.1 MG TABLET PO ONE (20:04)
[2021-04-25] MEDS: QUEtiapine FUMARATE 400 MG TABLET PO SCH ×2 (20:09→21:43)
[2021-04-25] MEDS: THIAMINE HCL 100 MG TABLET (FP) PO SCH (21:07)
[2021-04-26] MEDS: GABAPENTIN 300 MG CAPSULE PO SCH ×3 (06:12→22:02)
[2021-04-26] MEDS: PRENATAL VITAMINS W/ FOLIC ACID TABLET (FP) PO SCH (10:14)
[2021-04-26] MEDS: amLODIPine BESYLATE 5 MG TABLET (FP) PO SCH (10:15)
[2021-04-26] MEDS: QUEtiapine FUMARATE 50 MG TABLET PO SCH ×2 (10:15→17:39)
[2021-04-26] MEDS: FAMOTIDINE 20 MG TABLET PO SCH ×2 (10:15→22:02)
[2021-04-26] MEDS: ONDANSETRON *ODT* 4 MG TABLET SL PRN (15:26)
[2021-04-26] MEDS: MAG HYDROX/AL HYDROX/SIMETH 30 ML UNIT-DOSE CUP PO PRN (18:34)
[2021-04-26] MEDS: QUEtiapine FUMARATE 400 MG TABLET PO SCH (22:02)
[2021-04-26] MEDS: THIAMINE HCL 100 MG TABLET (FP) PO SCH (22:02)
[2021-04-26] MEDS: IBUPROFEN 400 MG TABLET (FP) PO PRN (22:13)
[2021-04-27] MEDS: GABAPENTIN 300 MG CAPSULE PO SCH ×3 (07:22→21:18)
[2021-04-27] MEDS: amLODIPine BESYLATE 5 MG TABLET (FP) PO SCH (10:57)
[2021-04-27] MEDS: FAMOTIDINE 20 MG TABLET PO SCH ×2 (10:57→21:18)
[2021-04-27] MEDS: QUEtiapine FUMARATE 50 MG TABLET PO SCH ×2 (10:57→18:06)
[2021-04-27] MEDS: PRENATAL VITAMINS W/ FOLIC ACID TABLET (FP) PO SCH (10:57)
[2021-04-27] MEDS: MAG HYDROX/AL HYDROX/SIMETH 30 ML UNIT-DOSE CUP PO PRN (18:03)
[2021-04-27] MEDS: THIAMINE HCL 100 MG TABLET (FP) PO SCH (21:18)
[2021-04-27] MEDS: QUEtiapine FUMARATE 400 MG TABLET PO SCH (21:18)
[2021-04-28] MEDS: GABAPENTIN 300 MG CAPSULE PO SCH ×3 (07:06→21:12)
[2021-04-28] MEDS: FAMOTIDINE 20 MG TABLET PO SCH ×2 (10:44→21:12)
[2021-04-28] MEDS: amLODIPine BESYLATE 5 MG TABLET (FP) PO SCH (10:44)
[2021-04-28] MEDS: QUEtiapine FUMARATE 50 MG TABLET PO SCH ×2 (10:44→16:13)
[2021-04-28] MEDS: PRENATAL VITAMINS W/ FOLIC ACID TABLET (FP) PO SCH (10:44)
[2021-04-28] MEDS: QUEtiapine FUMARATE 400 MG TABLET PO SCH (21:12)
[2021-04-28] MEDS: THIAMINE HCL 100 MG TABLET (FP) PO SCH (21:12)
[2021-04-29] MEDS: GABAPENTIN 300 MG CAPSULE PO SCH ×3 (06:11→22:09)
[2021-04-29] MEDS: amLODIPine BESYLATE 5 MG TABLET (FP) PO SCH (11:24)
[2021-04-29] MEDS: QUEtiapine FUMARATE 50 MG TABLET PO SCH ×2 (11:24→17:13)
[2021-04-29] MEDS: PRENATAL VITAMINS W/ FOLIC ACID TABLET (FP) PO SCH (11:24)
[2021-04-29] MEDS: FAMOTIDINE 20 MG TABLET PO SCH ×2 (11:24→22:09)
[2021-04-29 22:03] VITALS: TEMP 97.3
[2021-04-29] MEDS: THIAMINE HCL 100 MG TABLET (FP) PO SCH (22:09)
[2021-04-29] MEDS: QUEtiapine FUMARATE 400 MG TABLET PO SCH (22:09)
[2021-04-30] MEDS: GABAPENTIN 300 MG CAPSULE PO SCH (07:11)
[2021-04-30] MEDS: amLODIPine BESYLATE 5 MG TABLET (FP) PO SCH (09:47)
[2021-04-30] MEDS: PRENATAL VITAMINS W/ FOLIC ACID TABLET (FP) PO SCH (09:47)
[2021-04-30] MEDS: QUEtiapine FUMARATE 50 MG TABLET PO SCH (09:47)
[2021-04-30] MEDS: FAMOTIDINE 20 MG TABLET PO SCH (09:47)
[2021-04-30 10:11] VITALS: BP 138/83; PULSE 96
== END 2021-04-30 10:20 | disposition home or self-care (01) | DRG 895 ==
LOC: YASAS 12:03 → Y3N 14:47 → Y3W 04-20 18:34 → Y5N 04-21 22:03
PROVIDERS: ADMIT Allergy & Immunology; ATTEND Allergy & Immunology
PROC: HZ2ZZZZ Detoxification Services for Substance Abuse Treatment (ICD-10-PCS; 2021-04-16)
PROC: HZ42ZZZ Group Counseling for Substance Abuse Treatment, Cognitive-Behavioral (ICD-10-PCS; principal; 2021-04-20)
DX: F10.20 Alcohol dependence, uncomplicated (principal); Z68.41 Body mass index [BMI] 40.0-44.9, adult; F17.210 Nicotine dependence, cigarettes, uncomplicated; F25.9 Schizoaffective disorder, unspecified; F41.9 Anxiety disorder, unspecified; G47.00 Insomnia, unspecified; I10 Essential (primary) hypertension; K21.9 Gastro-esophageal reflux disease without esophagitis; E66.01 Morbid (severe) obesity due to excess calories
CPT/HCPCS: 36415; 80053; 85027; 86780; C9803; J0735; Q0162; U0003; U0005

== ENCOUNTER 2021-06-09 12:53 | Inpatient (IN) | payer OTHER ==
[2021-06-09 16:46] VITALS: BMI 871.6
[2021-06-09] MEDS ORDERED: MAGNESIUM HYDROX 2400MG/30ML ORAL SUSPENSION 30 ML CUP PO PRN (19:07)
[2021-06-09] MEDS ORDERED: LOPERAMIDE HCL 2 MG CAPSULE PO PRN (19:07)
[2021-06-09] MEDS ORDERED: ACETAMINOPHEN 325 MG TABLET (FP) PO PRN ×2 (19:07)
[2021-06-09] MEDS ORDERED: MENTHOL/PHENOL 1 EACH UD MM PRN (19:07)
[2021-06-09] MEDS ORDERED: MAGNESIUM CITRATE 300 ML BOTTLE PO PRN (19:07)
[2021-06-09] MEDS ORDERED: ONDANSETRON *ODT* 4 MG TABLET SL PRN (19:07)
[2021-06-09] MEDS ORDERED: MAG HYDROX/AL HYDROX/SIMETH 30 ML UNIT-DOSE CUP PO PRN (19:07)
[2021-06-09] MEDS ORDERED: BISMUTH SUBSALICYLATE 524 MG/30 ML PO PRN (19:07)
[2021-06-09] MEDS ORDERED: IBUPROFEN 400 MG TABLET (FP) PO PRN (19:07)
[2021-06-09] MEDS ORDERED: chlordiazePOXIDE HCL 25 MG CAPSULE PO PRN (19:09)
[2021-06-09] MEDS: hydrOXYzine PAMOATE 25 MG CAPSULE (FP) PO PRN (20:40)
[2021-06-09] MEDS: METHOCARBAMOL 500 MG TABLET PO PRN (20:42)
[2021-06-09] MEDS ORDERED: QUEtiapine FUMARATE 200 MG TABLET PO ONE (20:53)
[2021-06-09] MEDS: THIAMINE HCL 100 MG TABLET (FP) PO SCH (23:20)
[2021-06-09] MEDS: chlordiazePOXIDE HCL 25 MG CAPSULE PO SCH (23:21)
[2021-06-09] MEDS: FAMOTIDINE 20 MG TABLET PO SCH (23:27)
[2021-06-10] MEDS: chlordiazePOXIDE HCL 25 MG CAPSULE PO SCH ×4 (06:15→22:39)
[2021-06-10] MEDS: METHOCARBAMOL 500 MG TABLET PO PRN (06:15)
[2021-06-10] MEDS: hydrOXYzine PAMOATE 25 MG CAPSULE (FP) PO PRN (06:15)
[2021-06-10] MEDS: PRENATAL VITAMINS W/ FOLIC ACID TABLET (FP) PO SCH (10:48)
[2021-06-10] MEDS: FAMOTIDINE 20 MG TABLET PO SCH ×2 (10:49→22:39)
[2021-06-10] MEDS: amLODIPine BESYLATE 5 MG TABLET (FP) PO SCH (10:49)
[2021-06-10] MEDS: QUEtiapine FUMARATE 300 MG TABLET PO SCH (22:39)
[2021-06-10] MEDS: THIAMINE HCL 100 MG TABLET (FP) PO SCH (22:39)
[2021-06-11] MEDS: METHOCARBAMOL 500 MG TABLET PO PRN (01:12)
[2021-06-11] MEDS: MELATONIN 5 MG TABLETS PO PRN ×2 (01:12→22:38)
[2021-06-11] MEDS: chlordiazePOXIDE HCL 25 MG CAPSULE PO SCH ×4 (08:26→22:38)
[2021-06-11] MEDS: FAMOTIDINE 20 MG TABLET PO SCH ×2 (11:26→22:38)
[2021-06-11] MEDS: SERTRALINE HCL 25 MG TABLET (FP) PO SCH (11:26)
[2021-06-11] MEDS: amLODIPine BESYLATE 5 MG TABLET (FP) PO SCH (11:26)
[2021-06-11] MEDS: PRENATAL VITAMINS W/ FOLIC ACID TABLET (FP) PO SCH (11:28)
[2021-06-11] MEDS: QUEtiapine FUMARATE 300 MG TABLET PO SCH (22:38)
[2021-06-11] MEDS: THIAMINE HCL 100 MG TABLET (FP) PO SCH (22:38)
[2021-06-12] MEDS ORDERED: chlordiazePOXIDE HCL 10 MG CAPSULE PO PRN
[2021-06-12 06:10] LABS: SARS-CoV-2 NAA Not Detected (Not Detected)
[2021-06-12] MEDS: chlordiazePOXIDE HCL 10 MG CAPSULE PO SCH ×4 (07:23→22:56)
[2021-06-12] MEDS: amLODIPine BESYLATE 5 MG TABLET (FP) PO SCH (11:04)
[2021-06-12] MEDS: hydrOXYzine PAMOATE 25 MG CAPSULE (FP) PO PRN ×2 (11:04→17:50)
[2021-06-12] MEDS: PRENATAL VITAMINS W/ FOLIC ACID TABLET (FP) PO SCH (11:07)
[2021-06-12] MEDS: SERTRALINE HCL 25 MG TABLET (FP) PO SCH (11:08)
[2021-06-12] MEDS: FAMOTIDINE 20 MG TABLET PO SCH ×2 (11:08→22:56)
[2021-06-12] MEDS: METHOCARBAMOL 500 MG TABLET PO PRN ×2 (17:50→22:56)
[2021-06-12] MEDS: QUEtiapine FUMARATE 300 MG TABLET PO SCH (22:56)
[2021-06-12] MEDS: MELATONIN 5 MG TABLETS PO PRN (22:56)
[2021-06-12] MEDS: THIAMINE HCL 100 MG TABLET (FP) PO SCH (22:56)
[2021-06-13] MEDS: chlordiazePOXIDE HCL 10 MG CAPSULE PO SCH ×2 (07:11→17:56)
[2021-06-13] MEDS: hydrOXYzine PAMOATE 25 MG CAPSULE (FP) PO PRN ×2 (10:56→17:57)
[2021-06-13] MEDS: FAMOTIDINE 20 MG TABLET PO SCH ×2 (10:56→22:32)
[2021-06-13] MEDS: SERTRALINE HCL 25 MG TABLET (FP) PO SCH (10:56)
[2021-06-13] MEDS: amLODIPine BESYLATE 5 MG TABLET (FP) PO SCH (10:56)
[2021-06-13] MEDS: PRENATAL VITAMINS W/ FOLIC ACID TABLET (FP) PO SCH (10:56)
[2021-06-13] MEDS: MELATONIN 5 MG TABLETS PO PRN (22:30)
[2021-06-13] MEDS: QUEtiapine FUMARATE 300 MG TABLET PO SCH (22:30)
[2021-06-13] MEDS: THIAMINE HCL 100 MG TABLET (FP) PO SCH (22:30)
[2021-06-14] MEDS ORDERED: chlordiazePOXIDE HCL 10 MG CAPSULE PO ONE (05:00)
[2021-06-14] MEDS: PRENATAL VITAMINS W/ FOLIC ACID TABLET (FP) PO SCH (10:25)
[2021-06-14] MEDS: amLODIPine BESYLATE 5 MG TABLET (FP) PO SCH (10:26)
[2021-06-14] MEDS: SERTRALINE HCL 25 MG TABLET (FP) PO SCH (10:26)
[2021-06-14] MEDS: FAMOTIDINE 20 MG TABLET PO SCH ×2 (10:26→21:21)
[2021-06-14] MEDS: THIAMINE HCL 100 MG TABLET (FP) PO SCH (21:21)
[2021-06-14] MEDS: QUEtiapine FUMARATE 300 MG TABLET PO SCH (21:21)
[2021-06-14] MEDS: MELATONIN 5 MG TABLETS PO PRN (21:21)
[2021-06-14] MEDS: hydrOXYzine PAMOATE 25 MG CAPSULE (FP) PO PRN (21:22)
[2021-06-15] MEDS: amLODIPine BESYLATE 5 MG TABLET (FP) PO SCH (09:50)
[2021-06-15] MEDS: SERTRALINE HCL 25 MG TABLET (FP) PO SCH (09:50)
[2021-06-15] MEDS: PRENATAL VITAMINS W/ FOLIC ACID TABLET (FP) PO SCH (09:50)
[2021-06-15] MEDS: FAMOTIDINE 20 MG TABLET PO SCH ×2 (09:50→21:18)
[2021-06-15] MEDS: hydrOXYzine PAMOATE 25 MG CAPSULE (FP) PO PRN (09:51)
[2021-06-15] MEDS: METHOCARBAMOL 500 MG TABLET PO PRN (09:51)
[2021-06-15] MEDS ORDERED: COLLOIDAL OATMEAL 1 BAR EACH TP PRN (11:12)
[2021-06-15] MEDS: MINERAL OIL/PETROLAT/WATER TOPICAL CREAM 113 GM JAR TP SCH (12:13)
[2021-06-15] MEDS: THIAMINE HCL 100 MG TABLET (FP) PO SCH (21:18)
[2021-06-15] MEDS: QUEtiapine FUMARATE 300 MG TABLET PO SCH (21:18)
[2021-06-15] MEDS: MELATONIN 5 MG TABLETS PO PRN (21:20)
[2021-06-16] MEDS: PRENATAL VITAMINS W/ FOLIC ACID TABLET (FP) PO SCH (09:56)
[2021-06-16] MEDS: FAMOTIDINE 20 MG TABLET PO SCH ×2 (09:57→21:24)
[2021-06-16] MEDS: MINERAL OIL/PETROLAT/WATER TOPICAL CREAM 113 GM JAR TP SCH (09:57)
[2021-06-16] MEDS: SERTRALINE HCL 25 MG TABLET (FP) PO SCH (09:57)
[2021-06-16] MEDS: amLODIPine BESYLATE 5 MG TABLET (FP) PO SCH (09:57)
[2021-06-16] MEDS: GABAPENTIN 100 MG CAPSULE PO SCH (21:23)
[2021-06-16] MEDS: QUEtiapine FUMARATE 400 MG TABLET PO SCH (21:23)
[2021-06-16] MEDS: THIAMINE HCL 100 MG TABLET (FP) PO SCH (21:23)
[2021-06-16] MEDS: MELATONIN 5 MG TABLETS PO PRN (21:23)
[2021-06-17] MEDS: GABAPENTIN 100 MG CAPSULE PO SCH ×3 (06:24→21:28)
[2021-06-17] MEDS: MINERAL OIL/PETROLAT/WATER TOPICAL CREAM 113 GM JAR TP SCH (10:10)
[2021-06-17] MEDS: PRENATAL VITAMINS W/ FOLIC ACID TABLET (FP) PO SCH (10:10)
[2021-06-17] MEDS: FAMOTIDINE 20 MG TABLET PO SCH ×2 (10:10→21:27)
[2021-06-17] MEDS: amLODIPine BESYLATE 5 MG TABLET (FP) PO SCH (10:10)
[2021-06-17] MEDS: SERTRALINE HCL 25 MG TABLET (FP) PO SCH (10:11)
[2021-06-17] MEDS: THIAMINE HCL 100 MG TABLET (FP) PO SCH (21:27)
[2021-06-17] MEDS: METHOCARBAMOL 500 MG TABLET PO PRN (21:27)
[2021-06-17] MEDS: QUEtiapine FUMARATE 400 MG TABLET PO SCH (21:27)
[2021-06-17] MEDS: MELATONIN 5 MG TABLETS PO PRN (21:29)
[2021-06-18] MEDS: GABAPENTIN 100 MG CAPSULE PO SCH ×3 (06:55→21:13)
[2021-06-18] MEDS: FAMOTIDINE 20 MG TABLET PO SCH ×2 (09:40→21:13)
[2021-06-18] MEDS: SERTRALINE HCL 25 MG TABLET (FP) PO SCH (09:40)
[2021-06-18] MEDS: MINERAL OIL/PETROLAT/WATER TOPICAL CREAM 113 GM JAR TP SCH (09:40)
[2021-06-18] MEDS: amLODIPine BESYLATE 5 MG TABLET (FP) PO SCH (09:40)
[2021-06-18] MEDS: PRENATAL VITAMINS W/ FOLIC ACID TABLET (FP) PO SCH (09:40)
[2021-06-18] MEDS: THIAMINE HCL 100 MG TABLET (FP) PO SCH (21:13)
[2021-06-18] MEDS: QUEtiapine FUMARATE 400 MG TABLET PO SCH (21:13)
[2021-06-19] MEDS: GABAPENTIN 100 MG CAPSULE PO SCH ×3 (07:27→21:10)
[2021-06-19] MEDS: MINERAL OIL/PETROLAT/WATER TOPICAL CREAM 113 GM JAR TP SCH (10:08)
[2021-06-19] MEDS: amLODIPine BESYLATE 5 MG TABLET (FP) PO SCH (10:08)
[2021-06-19] MEDS: FAMOTIDINE 20 MG TABLET PO SCH ×2 (10:08→21:10)
[2021-06-19] MEDS: PRENATAL VITAMINS W/ FOLIC ACID TABLET (FP) PO SCH (10:08)
[2021-06-19] MEDS: SERTRALINE HCL 25 MG TABLET (FP) PO SCH (10:08)
[2021-06-19] MEDS: METHOCARBAMOL 500 MG TABLET PO PRN (21:10)
[2021-06-19] MEDS: THIAMINE HCL 100 MG TABLET (FP) PO SCH (21:10)
[2021-06-19] MEDS: QUEtiapine FUMARATE 400 MG TABLET PO SCH (21:10)
[2021-06-20] MEDS: GABAPENTIN 100 MG CAPSULE PO SCH ×3 (06:50→21:13)
[2021-06-20] MEDS: MINERAL OIL/PETROLAT/WATER TOPICAL CREAM 113 GM JAR TP SCH (09:46)
[2021-06-20] MEDS: PRENATAL VITAMINS W/ FOLIC ACID TABLET (FP) PO SCH (09:46)
[2021-06-20] MEDS: amLODIPine BESYLATE 5 MG TABLET (FP) PO SCH (09:47)
[2021-06-20] MEDS: SERTRALINE HCL 25 MG TABLET (FP) PO SCH (09:47)
[2021-06-20] MEDS: FAMOTIDINE 20 MG TABLET PO SCH ×2 (09:47→21:13)
[2021-06-20] MEDS: QUEtiapine FUMARATE 400 MG TABLET PO SCH (21:12)
[2021-06-20] MEDS: THIAMINE HCL 100 MG TABLET (FP) PO SCH (21:13)
[2021-06-20] MEDS: METHOCARBAMOL 500 MG TABLET PO PRN (21:13)
[2021-06-21 00:07] LABS: SARS-CoV-2 NAA Not Detected (Not Detected)
[2021-06-21] MEDS: GABAPENTIN 100 MG CAPSULE PO SCH ×3 (06:59→21:04)
[2021-06-21] MEDS: amLODIPine BESYLATE 5 MG TABLET (FP) PO SCH (09:51)
[2021-06-21] MEDS: SERTRALINE HCL 25 MG TABLET (FP) PO SCH (09:51)
[2021-06-21] MEDS: MINERAL OIL/PETROLAT/WATER TOPICAL CREAM 113 GM JAR TP SCH (09:52)
[2021-06-21] MEDS: FAMOTIDINE 20 MG TABLET PO SCH ×2 (09:52→21:04)
[2021-06-21] MEDS: PRENATAL VITAMINS W/ FOLIC ACID TABLET (FP) PO SCH (09:52)
[2021-06-21] MEDS: THIAMINE HCL 100 MG TABLET (FP) PO SCH (21:04)
[2021-06-21] MEDS: METHOCARBAMOL 500 MG TABLET PO PRN (21:04)
[2021-06-21] MEDS: QUEtiapine FUMARATE 400 MG TABLET PO SCH (21:04)
[2021-06-22] MEDS: GABAPENTIN 100 MG CAPSULE PO SCH ×3 (07:06→21:07)
[2021-06-22] MEDS: FAMOTIDINE 20 MG TABLET PO SCH ×2 (09:43→21:07)
[2021-06-22] MEDS: PRENATAL VITAMINS W/ FOLIC ACID TABLET (FP) PO SCH (09:43)
[2021-06-22] MEDS: amLODIPine BESYLATE 5 MG TABLET (FP) PO SCH (09:43)
[2021-06-22] MEDS: MINERAL OIL/PETROLAT/WATER TOPICAL CREAM 113 GM JAR TP SCH (09:43)
[2021-06-22] MEDS: SERTRALINE HCL 25 MG TABLET (FP) PO SCH (09:44)
[2021-06-22] MEDS: QUEtiapine FUMARATE 400 MG TABLET PO SCH (21:07)
[2021-06-22] MEDS: THIAMINE HCL 100 MG TABLET (FP) PO SCH (21:07)
[2021-06-22] MEDS: METHOCARBAMOL 500 MG TABLET PO PRN (21:09)
[2021-06-23] MEDS: GABAPENTIN 100 MG CAPSULE PO SCH ×3 (08:48→21:14)
[2021-06-23] MEDS: PRENATAL VITAMINS W/ FOLIC ACID TABLET (FP) PO SCH (09:43)
[2021-06-23] MEDS: amLODIPine BESYLATE 5 MG TABLET (FP) PO SCH (09:44)
[2021-06-23] MEDS: FAMOTIDINE 20 MG TABLET PO SCH ×2 (09:44→21:14)
[2021-06-23] MEDS: SERTRALINE HCL 25 MG TABLET (FP) PO SCH (09:44)
[2021-06-23] MEDS: MINERAL OIL/PETROLAT/WATER TOPICAL CREAM 113 GM JAR TP SCH (09:44)
[2021-06-23] MEDS: THIAMINE HCL 100 MG TABLET (FP) PO SCH (21:14)
[2021-06-23] MEDS: QUEtiapine FUMARATE 400 MG TABLET PO SCH (21:14)
[2021-06-23] MEDS: METHOCARBAMOL 500 MG TABLET PO PRN (21:15)
[2021-06-24] MEDS: GABAPENTIN 100 MG CAPSULE PO SCH ×3 (07:10→21:14)
[2021-06-24] MEDS: amLODIPine BESYLATE 5 MG TABLET (FP) PO SCH (09:49)
[2021-06-24] MEDS: MINERAL OIL/PETROLAT/WATER TOPICAL CREAM 113 GM JAR TP SCH (09:49)
[2021-06-24] MEDS: PRENATAL VITAMINS W/ FOLIC ACID TABLET (FP) PO SCH (09:49)
[2021-06-24] MEDS: FAMOTIDINE 20 MG TABLET PO SCH ×2 (09:49→21:14)
[2021-06-24] MEDS: SERTRALINE HCL 25 MG TABLET (FP) PO SCH (09:50)
[2021-06-24] MEDS: THIAMINE HCL 100 MG TABLET (FP) PO SCH (21:14)
[2021-06-24] MEDS: METHOCARBAMOL 500 MG TABLET PO PRN (21:14)
[2021-06-24] MEDS: QUEtiapine FUMARATE 400 MG TABLET PO SCH (21:14)
[2021-06-25] MEDS: GABAPENTIN 100 MG CAPSULE PO SCH (07:18)
[2021-06-25 09:11] VITALS: BP 144/86; PULSE 85; TEMP 97.1
[2021-06-25] MEDS: PRENATAL VITAMINS W/ FOLIC ACID TABLET (FP) PO SCH (09:37)
[2021-06-25] MEDS: SERTRALINE HCL 25 MG TABLET (FP) PO SCH (09:37)
[2021-06-25] MEDS: FAMOTIDINE 20 MG TABLET PO SCH (09:37)
[2021-06-25] MEDS: MINERAL OIL/PETROLAT/WATER TOPICAL CREAM 113 GM JAR TP SCH (09:37)
[2021-06-25] MEDS: amLODIPine BESYLATE 5 MG TABLET (FP) PO SCH (09:37)
== END 2021-06-25 10:42 | disposition home or self-care (01) | DRG 895 ==
LOC: YASAS 12:53 → Y3N 19:22 → Y5N 06-14 14:37
PROVIDERS: ADMIT Allergy & Immunology; ATTEND Allergy & Immunology
PROC: HZ2ZZZZ Detoxification Services for Substance Abuse Treatment (ICD-10-PCS; 2021-06-09)
PROC: HZ42ZZZ Group Counseling for Substance Abuse Treatment, Cognitive-Behavioral (ICD-10-PCS; principal; 2021-06-14)
DX: F10.20 Alcohol dependence, uncomplicated (principal); Z68.41 Body mass index [BMI] 40.0-44.9, adult; F25.9 Schizoaffective disorder, unspecified; F41.9 Anxiety disorder, unspecified; G47.00 Insomnia, unspecified; I10 Essential (primary) hypertension; K21.9 Gastro-esophageal reflux disease without esophagitis; H26.9 Unspecified cataract; L40.9 Psoriasis, unspecified; E66.01 Morbid (severe) obesity due to excess calories; Z62.810 Personal history of physical and sexual abuse in childhood; Z91.410 Personal history of adult physical and sexual abuse
CPT/HCPCS: 87811; C9803-CS; Q0162; U0003; U0005

== ENCOUNTER 2021-09-08 08:10 | Inpatient (IN) | payer OTHER ==
[2021-09-08 08:38] VITALS: BMI 40.4
[2021-09-08] MEDS ORDERED: ACETAMINOPHEN 325 MG TABLET (FP) PO PRN ×2 (09:46)
[2021-09-08] MEDS ORDERED: DICYCLOMINE HCL 10 MG CAPSULE PO PRN (09:46)
[2021-09-08] MEDS ORDERED: BISMUTH SUBSALICYLATE 262 MG/15 ML BTL PO PRN (09:46)
[2021-09-08] MEDS ORDERED: ONDANSETRON *ODT* 4 MG TABLET SL PRN (09:46)
[2021-09-08] MEDS ORDERED: MAGNESIUM CITRATE 300 ML BOTTLE PO PRN (09:46)
[2021-09-08] MEDS ORDERED: LOPERAMIDE HCL 2 MG CAPSULE PO PRN (09:46)
[2021-09-08] MEDS ORDERED: IBUPROFEN 600 MG TABLET (FP) PO PRN (09:46)
[2021-09-08] MEDS ORDERED: MAG HYDROX/AL HYDROX/SIMETH 30 ML UNIT-DOSE CUP PO PRN (09:46)
[2021-09-08] MEDS ORDERED: BENZOCAINE/MENTHOL (CHLORASEPTIC ) LOZENGE MM PRN (09:46)
[2021-09-08] MEDS ORDERED: LORazepam 1 MG TABLET PO PRN (09:46)
[2021-09-08] MEDS ORDERED: MAGNESIUM HYDROX 2400MG/30ML ORAL SUSPENSION 30 ML CUP PO PRN (09:46)
[2021-09-08] MEDS ORDERED: IBUPROFEN 400 MG TABLET (FP) PO PRN (09:46)
[2021-09-08] MEDS: PRENATAL VITAMINS W/ FOLIC ACID TABLET (FP) PO SCH (11:49)
[2021-09-08] MEDS: hydrOXYzine PAMOATE 25 MG CAPSULE (FP) PO SCH ×4 (11:49→22:30)
[2021-09-08] MEDS: METHOCARBAMOL 500 MG TABLET PO PRN ×2 (11:53→18:35)
[2021-09-08] MEDS: LORazepam 2 MG TABLET PO SCH ×3 (11:54→22:30)
[2021-09-08] MEDS ORDERED: amLODIPine BESYLATE 10 MG TABLET (FP) PO ONE (12:45)
[2021-09-08] MEDS ORDERED: LISINOPRIL 20 MG TABLET PO ONE (12:45)
[2021-09-08] MEDS: GABAPENTIN 300 MG CAPSULE PO SCH ×2 (13:01→22:30)
[2021-09-08 17:35] LABS: HEMATOCRIT 43.3 % (32.4-45.2); HEMOGLOBIN 14.5 GM/dL (10.7-15.3); MCHC 33.6 g/dl (32.0-36.0); MEAN CELL VOLUME 95.3 fl (80-96); MEAN PLT VOLUME 7.8 fl (7.5-11.1); PLATELET COUNT 318 10^3/uL (134-434); RBC 4.54 M/mm3 (3.60-5.2); RDW 14.4 % (11.6-15.6)
[2021-09-08 17:40] LABS: ALBUMIN 4.1 g/dl (3.4-5.0); BLOOD UREA NITROGEN 7.5 mg/dL (7-18); CALCIUM 9.4 mg/dL (8.5-10.1)
[2021-09-08 17:43] LABS: BILIRUBIN,TOTAL 0.8 mg/dL (0.2-1); CREATININE 0.8 mg/dL (0.55-1.3); TOT PROT 7.6 g/dl (6.4-8.2)
[2021-09-08] MEDS: MELATONIN 5 MG TABLETS PO SCH (22:30)
[2021-09-08] MEDS: QUEtiapine FUMARATE 400 MG TABLET PO SCH (22:30)
[2021-09-08] MEDS: THIAMINE HCL 100 MG TABLET (FP) PO SCH (22:30)
[2021-09-09] MEDS: hydrOXYzine PAMOATE 25 MG CAPSULE (FP) PO SCH ×5 (05:31→23:00)
[2021-09-09] MEDS: LORazepam 2 MG TABLET PO SCH ×4 (05:31→23:00)
[2021-09-09] MEDS: GABAPENTIN 300 MG CAPSULE PO SCH ×3 (05:31→23:00)
[2021-09-09] MEDS: SERTRALINE HCL 50 MG TABLET (FP) PO SCH ×2 (09:20→10:27)
[2021-09-09] MEDS: PRENATAL VITAMINS W/ FOLIC ACID TABLET (FP) PO SCH (10:26)
[2021-09-09] MEDS: amLODIPine BESYLATE 10 MG TABLET (FP) PO SCH ×2 (12:42→13:48)
[2021-09-09] MEDS: LISINOPRIL 20 MG TABLET PO SCH ×2 (12:42→13:48)
[2021-09-09] MEDS: METHOCARBAMOL 500 MG TABLET PO PRN ×2 (17:59→23:03)
[2021-09-09] MEDS: THIAMINE HCL 100 MG TABLET (FP) PO SCH (23:00)
[2021-09-09] MEDS: QUEtiapine FUMARATE 400 MG TABLET PO SCH (23:00)
[2021-09-09] MEDS: MELATONIN 5 MG TABLETS PO SCH (23:00)
[2021-09-10] MEDS: GABAPENTIN 300 MG CAPSULE PO SCH ×3 (06:24→22:26)
[2021-09-10] MEDS: hydrOXYzine PAMOATE 25 MG CAPSULE (FP) PO SCH ×5 (06:24→22:26)
[2021-09-10] MEDS: LORazepam 1 MG TABLET PO SCH ×4 (06:24→22:26)
[2021-09-10] MEDS: METHOCARBAMOL 500 MG TABLET PO PRN ×2 (06:25→17:48)
[2021-09-10] MEDS: PRENATAL VITAMINS W/ FOLIC ACID TABLET (FP) PO SCH (10:39)
[2021-09-10] MEDS: amLODIPine BESYLATE 10 MG TABLET (FP) PO SCH (10:40)
[2021-09-10] MEDS: SERTRALINE HCL 50 MG TABLET (FP) PO SCH (10:40)
[2021-09-10] MEDS: LISINOPRIL 20 MG TABLET PO SCH (10:42)
[2021-09-10] MEDS: THIAMINE HCL 100 MG TABLET (FP) PO SCH (22:26)
[2021-09-10] MEDS: QUEtiapine FUMARATE 400 MG TABLET PO SCH (22:26)
[2021-09-10] MEDS: MELATONIN 5 MG TABLETS PO SCH (22:26)
[2021-09-11] MEDS ORDERED: LORazepam 0.5 MG TABLET PO PRN
[2021-09-11] MEDS: LORazepam 0.5 MG TABLET PO SCH ×4 (05:47→23:06)
[2021-09-11] MEDS: METHOCARBAMOL 500 MG TABLET PO PRN ×3 (05:47→18:07)
[2021-09-11] MEDS: hydrOXYzine PAMOATE 25 MG CAPSULE (FP) PO SCH ×5 (05:49→23:06)
[2021-09-11] MEDS: GABAPENTIN 300 MG CAPSULE PO SCH ×3 (05:49→23:06)
[2021-09-11] MEDS: PRENATAL VITAMINS W/ FOLIC ACID TABLET (FP) PO SCH (10:54)
[2021-09-11] MEDS: LISINOPRIL 20 MG TABLET PO SCH (10:55)
[2021-09-11] MEDS: SERTRALINE HCL 50 MG TABLET (FP) PO SCH (10:55)
[2021-09-11] MEDS: amLODIPine BESYLATE 10 MG TABLET (FP) PO SCH (10:56)
[2021-09-11] MEDS: MELATONIN 5 MG TABLETS PO SCH (23:05)
[2021-09-11] MEDS: QUEtiapine FUMARATE 400 MG TABLET PO SCH (23:06)
[2021-09-11] MEDS: THIAMINE HCL 100 MG TABLET (FP) PO SCH (23:06)
[2021-09-12] MEDS ORDERED: LORazepam 0.5 MG TABLET PO ONE (05:00)
[2021-09-12] MEDS: GABAPENTIN 300 MG CAPSULE PO SCH ×2 (06:00→13:26)
[2021-09-12] MEDS: hydrOXYzine PAMOATE 25 MG CAPSULE (FP) PO SCH ×3 (06:00→13:26)
[2021-09-12] MEDS: SERTRALINE HCL 50 MG TABLET (FP) PO SCH (10:32)
[2021-09-12] MEDS: METHOCARBAMOL 500 MG TABLET PO PRN (10:32)
[2021-09-12] MEDS: amLODIPine BESYLATE 10 MG TABLET (FP) PO SCH (10:32)
[2021-09-12] MEDS: PRENATAL VITAMINS W/ FOLIC ACID TABLET (FP) PO SCH (10:32)
[2021-09-12] MEDS: LISINOPRIL 20 MG TABLET PO SCH (10:35)
[2021-09-12 13:13] VITALS: BP 107/68; PULSE 91; TEMP 97
== END 2021-09-12 14:16 | disposition other institution (70) | DRG 897 ==
LOC: YASAS 08:10 → Y6N 11:12
PROVIDERS: ADMIT Allergy & Immunology; ATTEND Surgery
PROC: HZ2ZZZZ Detoxification Services for Substance Abuse Treatment (ICD-10-PCS; principal; 2021-09-07)
DX: F10.230 Alcohol dependence with withdrawal, uncomplicated (principal); F10.282 Alcohol dependence with alcohol-induced sleep disorder; F10.280 Alcohol dependence with alcohol-induced anxiety disorder; F25.9 Schizoaffective disorder, unspecified; I10 Essential (primary) hypertension; K21.9 Gastro-esophageal reflux disease without esophagitis; I34.1 Nonrheumatic mitral (valve) prolapse; H40.9 Unspecified glaucoma; G47.00 Insomnia, unspecified; Z88.8 Allergy status to other drugs, medicaments and biological substances; Z91.410 Personal history of adult physical and sexual abuse; Z91.51 Personal history of suicidal behavior; Z56.0 Unemployment, unspecified
CPT/HCPCS: 36415; 80053; 85027; 86780; 87811; C9803-CS; U0003; U0005

== ENCOUNTER 2021-09-12 14:52 | Inpatient (IN) | payer OTHER ==
[2021-09-12] MEDS ORDERED: guaiFENesin 200 MG/10 ML 10 ML UNIT-DOSE CUPS PO PRN (14:59)
[2021-09-12] MEDS ORDERED: MAGNESIUM HYDROX 2400MG/30ML ORAL SUSPENSION 30 ML CUP PO PRN (14:59)
[2021-09-12] MEDS ORDERED: NICOTINE POLACRILEX 2 MG GUM BC PRN (14:59)
[2021-09-12] MEDS ORDERED: NICOTINE 10 MG CARTRIDGE (INHALER) IH PRN (14:59)
[2021-09-12] MEDS ORDERED: ACETAMINOPHEN 325 MG TABLET (FP) PO PRN (14:59)
[2021-09-12] MEDS ORDERED: LOPERAMIDE HCL 2 MG CAPSULE PO PRN (14:59)
[2021-09-12] MEDS ORDERED: IBUPROFEN 400 MG TABLET (FP) PO PRN (14:59)
[2021-09-12] MEDS ORDERED: MAGNESIUM CITRATE 300 ML BOTTLE PO PRN (14:59)
[2021-09-12] MEDS ORDERED: MAG HYDROX/AL HYDROX/SIMETH 30 ML UNIT-DOSE CUP PO PRN (14:59)
[2021-09-12] MEDS ORDERED: QUEtiapine FUMARATE 100 MG TABLET (FP) PO ONE (22:55)
[2021-09-12] MEDS: THIAMINE HCL 100 MG TABLET (FP) PO SCH (23:00)
[2021-09-12] MEDS: MELATONIN 5 MG TABLETS PO SCH (23:00)
[2021-09-12] MEDS: GABAPENTIN 300 MG CAPSULE PO SCH (23:01)
[2021-09-13] MEDS: GABAPENTIN 300 MG CAPSULE PO SCH ×3 (07:34→21:16)
[2021-09-13] MEDS: PRENATAL VITAMINS W/ FOLIC ACID TABLET (FP) PO SCH (10:36)
[2021-09-13] MEDS: LISINOPRIL 20 MG TABLET PO SCH (10:36)
[2021-09-13] MEDS: amLODIPine BESYLATE 10 MG TABLET (FP) PO SCH (10:36)
[2021-09-13] MEDS: SERTRALINE HCL 25 MG TABLET (FP) PO SCH (11:35)
[2021-09-13] MEDS: MELATONIN 5 MG TABLETS PO SCH (21:15)
[2021-09-13] MEDS: QUEtiapine FUMARATE 400 MG TABLET PO SCH (21:15)
[2021-09-13] MEDS: THIAMINE HCL 100 MG TABLET (FP) PO SCH (21:16)
[2021-09-13] MEDS: hydrOXYzine PAMOATE 25 MG CAPSULE (FP) PO PRN (21:16)
[2021-09-14] MEDS: GABAPENTIN 300 MG CAPSULE PO SCH ×3 (06:54→21:13)
[2021-09-14] MEDS: PRENATAL VITAMINS W/ FOLIC ACID TABLET (FP) PO SCH (10:52)
[2021-09-14] MEDS: SERTRALINE HCL 25 MG TABLET (FP) PO SCH (10:53)
[2021-09-14] MEDS: LISINOPRIL 20 MG TABLET PO SCH (10:53)
[2021-09-14] MEDS: hydrOXYzine PAMOATE 25 MG CAPSULE (FP) PO PRN ×2 (10:54→21:13)
[2021-09-14] MEDS: amLODIPine BESYLATE 10 MG TABLET (FP) PO SCH (10:55)
[2021-09-14] MEDS: QUEtiapine FUMARATE 400 MG TABLET PO SCH (21:13)
[2021-09-14] MEDS: THIAMINE HCL 100 MG TABLET (FP) PO SCH (21:13)
[2021-09-14] MEDS: MELATONIN 5 MG TABLETS PO SCH (21:14)
[2021-09-15] MEDS: GABAPENTIN 300 MG CAPSULE PO SCH ×3 (07:01→21:15)
[2021-09-15] MEDS: LISINOPRIL 20 MG TABLET PO SCH (10:42)
[2021-09-15] MEDS: PRENATAL VITAMINS W/ FOLIC ACID TABLET (FP) PO SCH (10:42)
[2021-09-15] MEDS: amLODIPine BESYLATE 10 MG TABLET (FP) PO SCH (10:43)
[2021-09-15] MEDS: SERTRALINE HCL 25 MG TABLET (FP) PO SCH (10:44)
[2021-09-15] MEDS: THIAMINE HCL 100 MG TABLET (FP) PO SCH (21:15)
[2021-09-15] MEDS: QUEtiapine FUMARATE 400 MG TABLET PO SCH (21:15)
[2021-09-15] MEDS: MELATONIN 5 MG TABLETS PO SCH (21:15)
[2021-09-15] MEDS: hydrOXYzine PAMOATE 25 MG CAPSULE (FP) PO PRN (21:16)
[2021-09-16] MEDS: GABAPENTIN 300 MG CAPSULE PO SCH ×3 (06:57→21:10)
[2021-09-16] MEDS: LISINOPRIL 20 MG TABLET PO SCH (10:46)
[2021-09-16] MEDS: hydrOXYzine PAMOATE 25 MG CAPSULE (FP) PO PRN ×2 (10:46→21:10)
[2021-09-16] MEDS: amLODIPine BESYLATE 10 MG TABLET (FP) PO SCH (10:46)
[2021-09-16] MEDS: SERTRALINE HCL 25 MG TABLET (FP) PO SCH (10:46)
[2021-09-16] MEDS: PRENATAL VITAMINS W/ FOLIC ACID TABLET (FP) PO SCH (10:46)
[2021-09-16] MEDS: THIAMINE HCL 100 MG TABLET (FP) PO SCH (21:10)
[2021-09-16] MEDS: QUEtiapine FUMARATE 400 MG TABLET PO SCH (21:10)
[2021-09-16] MEDS: MELATONIN 5 MG TABLETS PO SCH (21:11)
[2021-09-17] MEDS: GABAPENTIN 300 MG CAPSULE PO SCH ×3 (08:08→21:23)
[2021-09-17] MEDS: LISINOPRIL 20 MG TABLET PO SCH (10:46)
[2021-09-17] MEDS: PRENATAL VITAMINS W/ FOLIC ACID TABLET (FP) PO SCH (10:46)
[2021-09-17] MEDS: amLODIPine BESYLATE 10 MG TABLET (FP) PO SCH (10:47)
[2021-09-17] MEDS: SERTRALINE HCL 25 MG TABLET (FP) PO SCH (11:19)
[2021-09-17] MEDS: THIAMINE HCL 100 MG TABLET (FP) PO SCH (21:23)
[2021-09-17] MEDS: hydrOXYzine PAMOATE 25 MG CAPSULE (FP) PO PRN (21:23)
[2021-09-17] MEDS: MELATONIN 5 MG TABLETS PO SCH (21:23)
[2021-09-17] MEDS: QUEtiapine FUMARATE 400 MG TABLET PO SCH (21:23)
[2021-09-18] MEDS: GABAPENTIN 300 MG CAPSULE PO SCH ×3 (07:04→22:38)
[2021-09-18] MEDS: PRENATAL VITAMINS W/ FOLIC ACID TABLET (FP) PO SCH (10:25)
[2021-09-18] MEDS: amLODIPine BESYLATE 10 MG TABLET (FP) PO SCH (10:25)
[2021-09-18] MEDS: LISINOPRIL 20 MG TABLET PO SCH (10:25)
[2021-09-18] MEDS: SERTRALINE HCL 25 MG TABLET (FP) PO SCH (10:25)
[2021-09-18] MEDS: hydrOXYzine PAMOATE 25 MG CAPSULE (FP) PO PRN (22:38)
[2021-09-18] MEDS: QUEtiapine FUMARATE 200 MG TABLET PO SCH (22:38)
[2021-09-18] MEDS: THIAMINE HCL 100 MG TABLET (FP) PO SCH (22:38)
[2021-09-18] MEDS: MELATONIN 5 MG TABLETS PO SCH (22:38)
[2021-09-19] MEDS: GABAPENTIN 300 MG CAPSULE PO SCH ×3 (06:57→22:06)
[2021-09-19] MEDS: PRENATAL VITAMINS W/ FOLIC ACID TABLET (FP) PO SCH (10:51)
[2021-09-19] MEDS: amLODIPine BESYLATE 10 MG TABLET (FP) PO SCH (10:52)
[2021-09-19] MEDS: LISINOPRIL 20 MG TABLET PO SCH (10:52)
[2021-09-19] MEDS: SERTRALINE HCL 25 MG TABLET (FP) PO SCH (10:53)
[2021-09-19] MEDS: QUEtiapine FUMARATE 200 MG TABLET PO SCH (22:06)
[2021-09-19] MEDS: MELATONIN 5 MG TABLETS PO SCH (22:06)
[2021-09-19] MEDS: hydrOXYzine PAMOATE 25 MG CAPSULE (FP) PO PRN (22:06)
[2021-09-19] MEDS: THIAMINE HCL 100 MG TABLET (FP) PO SCH (22:06)
[2021-09-20] MEDS: GABAPENTIN 300 MG CAPSULE PO SCH ×2 (07:20→22:24)
[2021-09-20] MEDS: amLODIPine BESYLATE 10 MG TABLET (FP) PO SCH (10:38)
[2021-09-20] MEDS: PRENATAL VITAMINS W/ FOLIC ACID TABLET (FP) PO SCH (10:38)
[2021-09-20] MEDS: SERTRALINE HCL 25 MG TABLET (FP) PO SCH (10:38)
[2021-09-20] MEDS: LISINOPRIL 20 MG TABLET PO SCH (10:38)
[2021-09-20] MEDS: THIAMINE HCL 100 MG TABLET (FP) PO SCH (22:24)
[2021-09-20] MEDS: QUEtiapine FUMARATE 200 MG TABLET PO SCH (22:24)
[2021-09-20] MEDS: MELATONIN 5 MG TABLETS PO SCH (22:25)
[2021-09-20] MEDS: hydrOXYzine PAMOATE 25 MG CAPSULE (FP) PO PRN (22:25)
[2021-09-21] MEDS: LISINOPRIL 20 MG TABLET PO SCH (11:10)
[2021-09-21] MEDS: GABAPENTIN 300 MG CAPSULE PO SCH ×2 (11:10→21:54)
[2021-09-21] MEDS: SERTRALINE HCL 25 MG TABLET (FP) PO SCH (11:11)
[2021-09-21] MEDS: PRENATAL VITAMINS W/ FOLIC ACID TABLET (FP) PO SCH (11:11)
[2021-09-21] MEDS: amLODIPine BESYLATE 10 MG TABLET (FP) PO SCH (11:11)
[2021-09-21] MEDS: hydrOXYzine PAMOATE 25 MG CAPSULE (FP) PO PRN (21:54)
[2021-09-21] MEDS: MELATONIN 5 MG TABLETS PO SCH (21:54)
[2021-09-21] MEDS: THIAMINE HCL 100 MG TABLET (FP) PO SCH (21:54)
[2021-09-21] MEDS: QUEtiapine FUMARATE 200 MG TABLET PO SCH (21:54)
[2021-09-22] MEDS: amLODIPine BESYLATE 10 MG TABLET (FP) PO SCH (10:23)
[2021-09-22] MEDS: PRENATAL VITAMINS W/ FOLIC ACID TABLET (FP) PO SCH (10:23)
[2021-09-22] MEDS: GABAPENTIN 300 MG CAPSULE PO SCH ×2 (10:23→21:12)
[2021-09-22] MEDS: SERTRALINE HCL 25 MG TABLET (FP) PO SCH (10:24)
[2021-09-22] MEDS: LISINOPRIL 20 MG TABLET PO SCH (10:24)
[2021-09-22 21:05] VITALS: TEMP 96.9
[2021-09-22] MEDS: MELATONIN 5 MG TABLETS PO SCH (21:11)
[2021-09-22] MEDS: hydrOXYzine PAMOATE 25 MG CAPSULE (FP) PO PRN (21:11)
[2021-09-22] MEDS: THIAMINE HCL 100 MG TABLET (FP) PO SCH (21:12)
[2021-09-22] MEDS: QUEtiapine FUMARATE 200 MG TABLET PO SCH (21:12)
[2021-09-22] MEDS: METHOCARBAMOL 500 MG TABLET PO PRN (21:13)
[2021-09-23] MEDS: LISINOPRIL 20 MG TABLET PO SCH (10:45)
[2021-09-23] MEDS: PRENATAL VITAMINS W/ FOLIC ACID TABLET (FP) PO SCH (10:45)
[2021-09-23] MEDS: GABAPENTIN 300 MG CAPSULE PO SCH ×2 (10:45→21:02)
[2021-09-23] MEDS: amLODIPine BESYLATE 10 MG TABLET (FP) PO SCH (10:45)
[2021-09-23] MEDS: SERTRALINE HCL 25 MG TABLET (FP) PO SCH (10:46)
[2021-09-23] MEDS: METHOCARBAMOL 500 MG TABLET PO PRN (20:15)
[2021-09-23] MEDS: QUEtiapine FUMARATE 200 MG TABLET PO SCH (21:02)
[2021-09-23] MEDS: THIAMINE HCL 100 MG TABLET (FP) PO SCH (21:03)
[2021-09-23] MEDS: MELATONIN 5 MG TABLETS PO SCH (21:03)
[2021-09-24] MEDS: hydrOXYzine PAMOATE 25 MG CAPSULE (FP) PO PRN (08:56)
[2021-09-24] MEDS: GABAPENTIN 300 MG CAPSULE PO SCH (09:14)
[2021-09-24] MEDS: PRENATAL VITAMINS W/ FOLIC ACID TABLET (FP) PO SCH (09:14)
[2021-09-24] MEDS: LISINOPRIL 20 MG TABLET PO SCH (09:15)
[2021-09-24] MEDS: amLODIPine BESYLATE 10 MG TABLET (FP) PO SCH (09:16)
[2021-09-24] MEDS: SERTRALINE HCL 25 MG TABLET (FP) PO SCH (09:17)
[2021-09-24 11:05] VITALS: BP 119/79; PULSE 80
== END 2021-09-24 10:40 | disposition home or self-care (01) | DRG 895 ==
LOC: YASAS 14:52 → Y5N 14:54
PROVIDERS: ADMIT Allergy & Immunology; ATTEND Psychiatry & Neurology Pain Medicine
PROC: HZ42ZZZ Group Counseling for Substance Abuse Treatment, Cognitive-Behavioral (ICD-10-PCS; principal; 2021-09-12)
DX: F10.20 Alcohol dependence, uncomplicated (principal); F10.280 Alcohol dependence with alcohol-induced anxiety disorder; F10.282 Alcohol dependence with alcohol-induced sleep disorder; F25.9 Schizoaffective disorder, unspecified; I10 Essential (primary) hypertension; K21.9 Gastro-esophageal reflux disease without esophagitis; G47.00 Insomnia, unspecified; L40.9 Psoriasis, unspecified; M62.838 Other muscle spasm; E66.01 Morbid (severe) obesity due to excess calories; Z68.41 Body mass index [BMI] 40.0-44.9, adult; Z62.810 Personal history of physical and sexual abuse in childhood; Z91.410 Personal history of adult physical and sexual abuse

== ENCOUNTER 2021-11-14 09:09 | Inpatient (IN) | payer OTHER ==
[2021-11-14 10:41] VITALS: BMI 41.0
[2021-11-14] MEDS ORDERED: LORazepam 1 MG TABLET PO PRN (13:20)
[2021-11-14] MEDS ORDERED: MAGNESIUM CITRATE 300 ML BOTTLE PO PRN (13:20)
[2021-11-14] MEDS ORDERED: MAGNESIUM HYDROX 2400MG/30ML ORAL SUSPENSION 30 ML CUP PO PRN (13:20)
[2021-11-14] MEDS ORDERED: BISMUTH SUBSALICYLATE 524 MG/30 ML PO PRN (13:20)
[2021-11-14] MEDS ORDERED: ACETAMINOPHEN 325 MG TABLET (FP) PO PRN ×2 (13:20)
[2021-11-14] MEDS ORDERED: ONDANSETRON *ODT* 4 MG TABLET SL PRN (13:20)
[2021-11-14] MEDS ORDERED: LOPERAMIDE HCL 2 MG CAPSULE PO PRN (13:20)
[2021-11-14] MEDS ORDERED: IBUPROFEN 600 MG TABLET (FP) PO PRN (13:20)
[2021-11-14] MEDS ORDERED: DICYCLOMINE HCL 10 MG CAPSULE PO PRN (13:20)
[2021-11-14] MEDS ORDERED: NICOTINE 10 MG CARTRIDGE (INHALER) IH PRN (13:20)
[2021-11-14] MEDS ORDERED: IBUPROFEN 400 MG TABLET (FP) PO PRN (13:20)
[2021-11-14] MEDS ORDERED: BENZOCAINE/MENTHOL (CHLORASEPTIC ) LOZENGE MM PRN (13:20)
[2021-11-14] MEDS: hydrOXYzine PAMOATE 25 MG CAPSULE (FP) PO SCH ×3 (14:27→22:23)
[2021-11-14] MEDS: METHOCARBAMOL 500 MG TABLET PO PRN (14:27)
[2021-11-14] MEDS: MAG HYDROX/AL HYDROX/SIMETH 30 ML UNIT-DOSE CUP PO PRN (14:29)
[2021-11-14] MEDS: LORazepam 2 MG TABLET PO SCH ×2 (17:43→22:23)
[2021-11-14] MEDS: GABAPENTIN 300 MG CAPSULE PO SCH (22:22)
[2021-11-14] MEDS: QUEtiapine FUMARATE 200 MG TABLET PO SCH (22:22)
[2021-11-14] MEDS: THIAMINE HCL 100 MG TABLET (FP) PO SCH (22:22)
[2021-11-14] MEDS: MELATONIN 5 MG TABLETS PO SCH (22:25)
[2021-11-15] MEDS: GABAPENTIN 300 MG CAPSULE PO SCH ×3 (07:28→22:40)
[2021-11-15] MEDS: LORazepam 2 MG TABLET PO SCH ×4 (07:28→22:39)
[2021-11-15] MEDS: hydrOXYzine PAMOATE 25 MG CAPSULE (FP) PO SCH ×5 (07:28→22:40)
[2021-11-15] MEDS: PRENATAL VITAMINS W/ FOLIC ACID TABLET (FP) PO SCH (11:09)
[2021-11-15] MEDS: SERTRALINE HCL 25 MG TABLET (FP) PO SCH (11:10)
[2021-11-15] MEDS: LISINOPRIL 20 MG TABLET PO SCH (12:59)
[2021-11-15] MEDS: amLODIPine BESYLATE 10 MG TABLET (FP) PO SCH (12:59)
[2021-11-15 14:21] LABS: HEMATOCRIT 40.9 % (32.4-45.2); HEMOGLOBIN 13.5 GM/dL (10.7-15.3); MCH 31.7 pg (25.7-33.7); MCHC 33.1 g/dl (32.0-36.0); MEAN CELL VOLUME 95.9 fl (80-96); MEAN PLT VOLUME 7.6 fl (7.5-11.1); PLATELET COUNT 233 10^3/uL (134-434); RBC 4.27 M/mm3 (3.60-5.2); RDW 14.6 % (11.6-15.6); WHITE BLOOD COUNT 6.3 K/mm3 (4.0-10.0)
[2021-11-15 14:28] LABS: ALBUMIN 3.4 g/dl (3.4-5.0); BLOOD UREA NITROGEN 13.6 mg/dL (7-18)
[2021-11-15 14:31] LABS: CREATININE 0.7 mg/dL (0.55-1.3)
[2021-11-15 14:32] LABS: BILIRUBIN,TOTAL 0.6 mg/dL (0.2-1); TOT PROT 6.3 g/dl (6.4-8.2)
[2021-11-15] MEDS: METHOCARBAMOL 500 MG TABLET PO PRN (18:13)
[2021-11-15] MEDS: MELATONIN 5 MG TABLETS PO SCH (22:39)
[2021-11-15] MEDS: THIAMINE HCL 100 MG TABLET (FP) PO SCH (22:40)
[2021-11-15] MEDS: QUEtiapine FUMARATE 200 MG TABLET PO SCH (22:40)
[2021-11-16] MEDS: GABAPENTIN 300 MG CAPSULE PO SCH ×3 (06:09→22:21)
[2021-11-16] MEDS: hydrOXYzine PAMOATE 25 MG CAPSULE (FP) PO SCH ×5 (06:09→22:22)
[2021-11-16] MEDS: LORazepam 1 MG TABLET PO SCH ×4 (06:10→22:22)
[2021-11-16] MEDS: amLODIPine BESYLATE 10 MG TABLET (FP) PO SCH (10:46)
[2021-11-16] MEDS: LISINOPRIL 20 MG TABLET PO SCH (10:47)
[2021-11-16] MEDS: SERTRALINE HCL 25 MG TABLET (FP) PO SCH (10:48)
[2021-11-16] MEDS: PRENATAL VITAMINS W/ FOLIC ACID TABLET (FP) PO SCH (10:49)
[2021-11-16] MEDS: METHOCARBAMOL 500 MG TABLET PO PRN (17:20)
[2021-11-16] MEDS: MELATONIN 5 MG TABLETS PO SCH (22:21)
[2021-11-16] MEDS: QUEtiapine FUMARATE 200 MG TABLET PO SCH (22:22)
[2021-11-16] MEDS: THIAMINE HCL 100 MG TABLET (FP) PO SCH (22:23)
[2021-11-17] MEDS ORDERED: LORazepam 0.5 MG TABLET PO PRN
[2021-11-17] MEDS: GABAPENTIN 300 MG CAPSULE PO SCH ×3 (05:47→22:18)
[2021-11-17] MEDS: LORazepam 0.5 MG TABLET PO SCH ×4 (05:48→22:18)
[2021-11-17] MEDS: hydrOXYzine PAMOATE 25 MG CAPSULE (FP) PO SCH ×5 (05:48→22:17)
[2021-11-17] MEDS: LISINOPRIL 20 MG TABLET PO SCH (10:16)
[2021-11-17] MEDS: PRENATAL VITAMINS W/ FOLIC ACID TABLET (FP) PO SCH (10:17)
[2021-11-17] MEDS: SERTRALINE HCL 25 MG TABLET (FP) PO SCH (10:17)
[2021-11-17] MEDS: amLODIPine BESYLATE 10 MG TABLET (FP) PO SCH (10:17)
[2021-11-17] MEDS: METHOCARBAMOL 500 MG TABLET PO PRN (18:03)
[2021-11-17] MEDS: MELATONIN 5 MG TABLETS PO SCH (22:17)
[2021-11-17] MEDS: THIAMINE HCL 100 MG TABLET (FP) PO SCH (22:17)
[2021-11-17] MEDS: QUEtiapine FUMARATE 200 MG TABLET PO SCH (22:17)
[2021-11-18] MEDS: MAG HYDROX/AL HYDROX/SIMETH 30 ML UNIT-DOSE CUP PO PRN (01:28)
[2021-11-18] MEDS ORDERED: LORazepam 0.5 MG TABLET PO ONE (05:00)
[2021-11-18] MEDS: hydrOXYzine PAMOATE 25 MG CAPSULE (FP) PO SCH ×3 (06:12→13:29)
[2021-11-18] MEDS: GABAPENTIN 300 MG CAPSULE PO SCH ×2 (06:12→13:28)
[2021-11-18 09:08] VITALS: PULSE 89
[2021-11-18 09:48] VITALS: BP 104/70; RESP 20; TEMP 98.1
[2021-11-18] MEDS: SERTRALINE HCL 25 MG TABLET (FP) PO SCH (10:44)
[2021-11-18] MEDS: LISINOPRIL 20 MG TABLET PO SCH (10:44)
[2021-11-18] MEDS: PRENATAL VITAMINS W/ FOLIC ACID TABLET (FP) PO SCH (10:44)
[2021-11-18] MEDS: amLODIPine BESYLATE 10 MG TABLET (FP) PO SCH (10:44)
[2021-11-18] MEDS: METHOCARBAMOL 500 MG TABLET PO PRN (10:44)
== END 2021-11-18 15:14 | disposition home or self-care (01) | DRG 897 ==
LOC: SUATTDRO 09:09 → YASAS 09:09 → Y6N 12:49
PROVIDERS: ADMIT Allergy & Immunology; ATTEND Surgery
PROC: HZ2ZZZZ Detoxification Services for Substance Abuse Treatment (ICD-10-PCS; principal; 2021-11-14)
DX: F10.230 Alcohol dependence with withdrawal, uncomplicated (principal); Z68.41 Body mass index [BMI] 40.0-44.9, adult; F25.1 Schizoaffective disorder, depressive type; F31.9 Bipolar disorder, unspecified; I10 Essential (primary) hypertension; K21.9 Gastro-esophageal reflux disease without esophagitis; H26.8 Other specified cataract; L40.9 Psoriasis, unspecified; G47.00 Insomnia, unspecified; E66.01 Morbid (severe) obesity due to excess calories; Z86.69 Personal history of other diseases of the nervous system and sense organs; Z88.6 Allergy status to analgesic agent; Z95.1 Presence of aortocoronary bypass graft; Z56.0 Unemployment, unspecified
CPT/HCPCS: 36415; 80053; 85027; 86780; 87811; C9803-CS; U0003; U0005

== ENCOUNTER 2022-04-01 10:25 | Inpatient (IN) | payer OTHER ==
[2022-04-01 12:14] VITALS: BMI 41.3
[2022-04-01] MEDS ORDERED: NICOTINE 10 MG CARTRIDGE (INHALER) IH PRN (14:16)
[2022-04-01] MEDS ORDERED: IBUPROFEN 600 MG TABLET (FP) PO PRN (14:16)
[2022-04-01] MEDS ORDERED: ACETAMINOPHEN 325 MG TABLET (FP) PO PRN ×2 (14:16)
[2022-04-01] MEDS ORDERED: POLYETHYLENE GLYCOL (HEALTHYLAX) 3350 17 GM PACKET PO PRN (14:16)
[2022-04-01] MEDS ORDERED: BENZOCAINE/MENTHOL (CHLORASEPTIC ) LOZENGE MM PRN (14:16)
[2022-04-01] MEDS ORDERED: MAGNESIUM HYDROX 2400MG/30ML ORAL SUSPENSION 30 ML CUP PO PRN (14:16)
[2022-04-01] MEDS ORDERED: LOPERAMIDE HCL 2 MG CAPSULE PO PRN (14:16)
[2022-04-01] MEDS ORDERED: IBUPROFEN 400 MG TABLET (FP) PO PRN (14:16)
[2022-04-01] MEDS ORDERED: BISMUTH SUBSALICYLATE 262 MG/15 ML BTL PO PRN (14:16)
[2022-04-01] MEDS ORDERED: MAG HYDROX/AL HYDROX/SIMETH 30 ML UNIT-DOSE CUP PO PRN (14:16)
[2022-04-01] MEDS ORDERED: NALOXONE HCL (KLOXXADO) 8 MG SPRAY NS PRN (14:16)
[2022-04-01] MEDS ORDERED: DICYCLOMINE HCL 10 MG CAPSULE PO PRN (14:16)
[2022-04-01] MEDS ORDERED: ONDANSETRON *ODT* 4 MG TABLET ONE (14:20)
[2022-04-01] MEDS ORDERED: diazePAM 5 MG TABLET PO ONE (14:36)
[2022-04-01] MEDS ORDERED: MECLIZINE HCL 25 MG TABLET (FP) PO PRN (14:45)
[2022-04-01] MEDS: ONDANSETRON *ODT* 4 MG TABLET SL PRN (14:45)
[2022-04-01] MEDS: amLODIPine BESYLATE 10 MG TABLET (FP) PO SCH (15:33)
[2022-04-01] MEDS: PRENATAL VITAMINS W/ FOLIC ACID TABLET (FP) PO SCH (15:40)
[2022-04-01] MEDS: METHOCARBAMOL 500 MG TABLET PO PRN (17:50)
[2022-04-01] MEDS: diazePAM 5 MG TABLET PO SCH ×2 (17:50→22:07)
[2022-04-01] MEDS ORDERED: MELATONIN 5 MG TABLETS PO SCH (22:00)
[2022-04-01] MEDS: THIAMINE HCL 100 MG TABLET (FP) PO SCH (22:17)
[2022-04-02] MEDS: ONDANSETRON *ODT* 4 MG TABLET SL PRN ×2 (02:40→10:15)
[2022-04-02] MEDS: diazePAM 5 MG TABLET PO SCH ×4 (05:02→22:24)
[2022-04-02] MEDS: amLODIPine BESYLATE 10 MG TABLET (FP) PO SCH (10:15)
[2022-04-02] MEDS: PRENATAL VITAMINS W/ FOLIC ACID TABLET (FP) PO SCH (10:15)
[2022-04-02] MEDS: METHOCARBAMOL 500 MG TABLET PO PRN ×2 (10:15→16:46)
[2022-04-02] MEDS: busPIRone HCL 5 MG TABLET PO SCH ×2 (13:50→22:22)
[2022-04-02] MEDS ORDERED: GABAPENTIN 100 MG CAPSULE PO SCH (14:00)
[2022-04-02] MEDS: GABAPENTIN 300 MG CAPSULE PO SCH ×2 (14:03→22:22)
[2022-04-02] MEDS: THIAMINE HCL 100 MG TABLET (FP) PO SCH (22:22)
[2022-04-02] MEDS: QUEtiapine FUMARATE 200 MG TABLET PO SCH (22:24)
[2022-04-02] MEDS: MINERAL OIL/PETROLAT/WATER TOPICAL CREAM 113 GM JAR TP SCH (22:24)
[2022-04-03] MEDS: diazePAM 5 MG TABLET PO SCH ×3 (06:12→22:06)
[2022-04-03] MEDS: busPIRone HCL 5 MG TABLET PO SCH ×3 (06:12→22:05)
[2022-04-03] MEDS: GABAPENTIN 300 MG CAPSULE PO SCH ×3 (06:12→22:05)
[2022-04-03] MEDS: ONDANSETRON *ODT* 4 MG TABLET SL PRN (06:19)
[2022-04-03] MEDS: PRENATAL VITAMINS W/ FOLIC ACID TABLET (FP) PO SCH (10:12)
[2022-04-03] MEDS: amLODIPine BESYLATE 10 MG TABLET (FP) PO SCH (10:12)
[2022-04-03] MEDS: MINERAL OIL/PETROLAT/WATER TOPICAL CREAM 113 GM JAR TP SCH ×2 (10:13→22:06)
[2022-04-03 11:19] LABS: HEMATOCRIT 40.2 % (32.4-45.2); HEMOGLOBIN 13.5 GM/dL (10.7-15.3); MCH 31.1 pg (25.7-33.7); MCHC 33.5 g/dl (32.0-36.0); MEAN CELL VOLUME 92.6 fl (80-96); MEAN PLT VOLUME 7.2 fl (7.5-11.1); PLATELET COUNT 266 10^3/uL (134-434); RBC 4.34 M/mm3 (3.60-5.2)
[2022-04-03 11:36] LABS: CALCIUM 8.9 mg/dL (8.5-10.1)
[2022-04-03 11:37] LABS: ALBUMIN 3.3 g/dl (3.4-5.0); BLOOD UREA NITROGEN 11.9 mg/dL (7-18)
[2022-04-03 11:40] LABS: CREATININE 0.9 mg/dL (0.55-1.3)
[2022-04-03 11:41] LABS: BILIRUBIN,TOTAL 0.5 mg/dL (0.2-1); TOT PROT 6.2 g/dl (6.4-8.2)
[2022-04-03] MEDS ORDERED: ACETAMINOPHEN 325 MG TABLET (FP) PO ONE (13:01)
[2022-04-03] MEDS: METHOCARBAMOL 500 MG TABLET PO PRN (19:25)
[2022-04-03] MEDS: THIAMINE HCL 100 MG TABLET (FP) PO SCH (22:05)
[2022-04-03] MEDS: QUEtiapine FUMARATE 200 MG TABLET PO SCH (22:05)
[2022-04-04] MEDS: GABAPENTIN 300 MG CAPSULE PO SCH ×3 (05:27→22:19)
[2022-04-04] MEDS: busPIRone HCL 5 MG TABLET PO SCH ×3 (05:27→22:19)
[2022-04-04] MEDS: diazePAM 5 MG TABLET PO SCH ×2 (05:33→17:14)
[2022-04-04] MEDS: PRENATAL VITAMINS W/ FOLIC ACID TABLET (FP) PO SCH (10:08)
[2022-04-04] MEDS: amLODIPine BESYLATE 10 MG TABLET (FP) PO SCH (10:08)
[2022-04-04] MEDS: METHOCARBAMOL 500 MG TABLET PO PRN ×2 (10:09→22:19)
[2022-04-04] MEDS: MINERAL OIL/PETROLAT/WATER TOPICAL CREAM 113 GM JAR TP SCH ×2 (10:09→22:19)
[2022-04-04] MEDS: CALAMINE 8% TOPICAL LOTION 177 ML BOTTLE TP SCH (10:39)
[2022-04-04] MEDS: QUEtiapine FUMARATE 200 MG TABLET PO SCH (22:19)
[2022-04-04] MEDS: THIAMINE HCL 100 MG TABLET (FP) PO SCH (22:20)
[2022-04-05] MEDS: GABAPENTIN 300 MG CAPSULE PO SCH (05:57)
[2022-04-05] MEDS: busPIRone HCL 5 MG TABLET PO SCH (05:57)
[2022-04-05] MEDS ORDERED: diazePAM 5 MG TABLET PO ONE (06:00)
[2022-04-05 09:20] VITALS: BP 116/70; PULSE 74; RESP 16; TEMP 96.8
[2022-04-05] MEDS: amLODIPine BESYLATE 10 MG TABLET (FP) PO SCH (09:37)
[2022-04-05] MEDS: CALAMINE 8% TOPICAL LOTION 177 ML BOTTLE TP SCH (09:39)
[2022-04-05] MEDS: MINERAL OIL/PETROLAT/WATER TOPICAL CREAM 113 GM JAR TP SCH (09:39)
[2022-04-05] MEDS: PRENATAL VITAMINS W/ FOLIC ACID TABLET (FP) PO SCH (09:41)
[2022-04-05] MEDS ORDERED: LACTULOSE 20 GM/30 ML UDC (FOR ORAL USE ONLY) PO SCH (10:00)
== END 2022-04-05 11:50 | disposition home or self-care (01) | DRG 897 ==
LOC: YASAS 10:25 → Y6N 15:07
PROVIDERS: ADMIT Allergy & Immunology; ATTEND Surgery
PROC: HZ2ZZZZ Detoxification Services for Substance Abuse Treatment (ICD-10-PCS; principal; 2022-04-01)
DX: F10.230 Alcohol dependence with withdrawal, uncomplicated (principal); F19.282 Other psychoactive substance dependence with psychoactive substance-induced sleep disorder; Z68.41 Body mass index [BMI] 40.0-44.9, adult; F19.24 Other psychoactive substance dependence with psychoactive substance-induced mood disorder; F25.0 Schizoaffective disorder, bipolar type; F31.9 Bipolar disorder, unspecified; F43.10 Post-traumatic stress disorder, unspecified; I10 Essential (primary) hypertension; K21.9 Gastro-esophageal reflux disease without esophagitis; R79.89 Other specified abnormal findings of blood chemistry; E66.01 Morbid (severe) obesity due to excess calories
CPT/HCPCS: 36415; 80053; 82140; 82962; 85027; 86780; C9803-CS; Q0162; U0003; U0005

== ENCOUNTER 2022-05-11 11:14 | Inpatient (IN) | payer OTHER ==
[2022-05-11 11:45] VITALS: BMI 41.1
[2022-05-11] MEDS ORDERED: POLYETHYLENE GLYCOL (HEALTHYLAX) 3350 17 GM PACKET PO PRN (14:38)
[2022-05-11] MEDS ORDERED: BENZOCAINE/MENTHOL (CHLORASEPTIC ) LOZENGE MM PRN (14:38)
[2022-05-11] MEDS ORDERED: ONDANSETRON *ODT* 4 MG TABLET SL PRN (14:38)
[2022-05-11] MEDS ORDERED: DICYCLOMINE HCL 10 MG CAPSULE PO PRN (14:38)
[2022-05-11] MEDS ORDERED: NALOXONE HCL (KLOXXADO) 8 MG SPRAY NS PRN (14:38)
[2022-05-11] MEDS ORDERED: IBUPROFEN 400 MG TABLET (FP) PO PRN (14:38)
[2022-05-11] MEDS ORDERED: LOPERAMIDE HCL 2 MG CAPSULE PO PRN (14:38)
[2022-05-11] MEDS ORDERED: IBUPROFEN 600 MG TABLET (FP) PO PRN (14:38)
[2022-05-11] MEDS ORDERED: MAG HYDROX/AL HYDROX/SIMETH 30 ML UNIT-DOSE CUP PO PRN (14:38)
[2022-05-11] MEDS ORDERED: MAGNESIUM HYDROX 2400MG/30ML ORAL SUSPENSION 30 ML CUP PO PRN (14:38)
[2022-05-11] MEDS ORDERED: hydrOXYzine PAMOATE 25 MG CAPSULE (FP) PO PRN (14:38)
[2022-05-11] MEDS ORDERED: ACETAMINOPHEN 325 MG TABLET (FP) PO PRN ×2 (14:38)
[2022-05-11] MEDS ORDERED: LORazepam 1 MG TABLET PO PRN (14:38)
[2022-05-11] MEDS ORDERED: BISMUTH SUBSALICYLATE 524 MG/30 ML PO PRN (14:38)
[2022-05-11] MEDS: PRENATAL VITAMINS W/ FOLIC ACID TABLET (FP) PO SCH (16:24)
[2022-05-11] MEDS: LORazepam 2 MG TABLET PO SCH ×2 (17:25→22:18)
[2022-05-11] MEDS: METHOCARBAMOL 500 MG TABLET PO PRN (17:27)
[2022-05-11] MEDS: MELATONIN 5 MG TABLETS PO SCH (22:18)
[2022-05-11] MEDS: THIAMINE HCL 100 MG TABLET (FP) PO SCH (22:18)
[2022-05-11] MEDS ORDERED: QUEtiapine FUMARATE 200 MG TABLET PO ONE (23:15)
[2022-05-12] MEDS: LORazepam 2 MG TABLET PO SCH ×4 (05:51→22:11)
[2022-05-12] MEDS: LISINOPRIL 20 MG TABLET PO SCH (10:27)
[2022-05-12] MEDS: PRENATAL VITAMINS W/ FOLIC ACID TABLET (FP) PO SCH (10:28)
[2022-05-12] MEDS: amLODIPine BESYLATE 10 MG TABLET (FP) PO SCH (10:28)
[2022-05-12 13:41] LABS: HEMATOCRIT 38.1 % (32.4-45.2); MCH 30.9 pg (25.7-33.7); MCHC 34.1 g/dl (32.0-36.0); MEAN CELL VOLUME 90.5 fl (80-96); MEAN PLT VOLUME 7.2 fl (7.5-11.1); PLATELET COUNT 261 10^3/uL (134-434); RBC 4.21 M/mm3 (3.60-5.2); RDW 13.3 % (11.6-15.6); WHITE BLOOD COUNT 6.3 K/mm3 (4.0-10.0)
[2022-05-12 14:30] LABS: CALCIUM 9.2 mg/dL (8.5-10.1)
[2022-05-12 14:31] LABS: ALBUMIN 3.2 g/dl (3.4-5.0); BLOOD UREA NITROGEN 13.5 mg/dL (7-18)
[2022-05-12 14:34] LABS: CREATININE 0.9 mg/dL (0.55-1.3)
[2022-05-12 14:35] LABS: BILIRUBIN,TOTAL 0.6 mg/dL (0.2-1)
[2022-05-12] MEDS: busPIRone HCL 5 MG TABLET PO SCH ×2 (14:46→22:11)
[2022-05-12] MEDS: METHOCARBAMOL 500 MG TABLET PO PRN (17:26)
[2022-05-12] MEDS: MELATONIN 5 MG TABLETS PO SCH (22:11)
[2022-05-12] MEDS: THIAMINE HCL 100 MG TABLET (FP) PO SCH (22:11)
[2022-05-12] MEDS: QUEtiapine FUMARATE 300 MG TABLET PO SCH (22:11)
[2022-05-12] MEDS: FAMOTIDINE 20 MG TABLET PO SCH (22:11)
[2022-05-12] MEDS: GABAPENTIN 300 MG CAPSULE PO SCH (22:11)
[2022-05-13] MEDS: GABAPENTIN 300 MG CAPSULE PO SCH ×3 (06:00→22:20)
[2022-05-13] MEDS: LORazepam 1 MG TABLET PO SCH ×4 (06:00→22:21)
[2022-05-13] MEDS: busPIRone HCL 5 MG TABLET PO SCH ×3 (06:00→22:21)
[2022-05-13] MEDS: LISINOPRIL 20 MG TABLET PO SCH (10:19)
[2022-05-13] MEDS: PRENATAL VITAMINS W/ FOLIC ACID TABLET (FP) PO SCH (10:19)
[2022-05-13] MEDS: amLODIPine BESYLATE 10 MG TABLET (FP) PO SCH (10:19)
[2022-05-13] MEDS: FAMOTIDINE 20 MG TABLET PO SCH ×2 (10:19→22:20)
[2022-05-13] MEDS: THIAMINE HCL 100 MG TABLET (FP) PO SCH (22:20)
[2022-05-13] MEDS: MELATONIN 5 MG TABLETS PO SCH (22:20)
[2022-05-13] MEDS: QUEtiapine FUMARATE 300 MG TABLET PO SCH (22:22)
[2022-05-14] MEDS ORDERED: LORazepam 0.5 MG TABLET PO PRN
[2022-05-14] MEDS: LORazepam 0.5 MG TABLET PO SCH ×4 (06:18→22:04)
[2022-05-14] MEDS: busPIRone HCL 5 MG TABLET PO SCH ×3 (06:18→22:03)
[2022-05-14] MEDS: GABAPENTIN 300 MG CAPSULE PO SCH ×3 (06:19→22:04)
[2022-05-14] MEDS: LISINOPRIL 20 MG TABLET PO SCH (10:21)
[2022-05-14] MEDS: PRENATAL VITAMINS W/ FOLIC ACID TABLET (FP) PO SCH (10:21)
[2022-05-14] MEDS: FAMOTIDINE 20 MG TABLET PO SCH ×2 (10:21→22:03)
[2022-05-14] MEDS: amLODIPine BESYLATE 10 MG TABLET (FP) PO SCH (10:21)
[2022-05-14] MEDS: METHOCARBAMOL 500 MG TABLET PO PRN (15:37)
[2022-05-14] MEDS: QUEtiapine FUMARATE 300 MG TABLET PO SCH (22:03)
[2022-05-14] MEDS: MELATONIN 5 MG TABLETS PO SCH (22:04)
[2022-05-14] MEDS: THIAMINE HCL 100 MG TABLET (FP) PO SCH (22:04)
[2022-05-15] MEDS ORDERED: LORazepam 0.5 MG TABLET PO ONE (05:00)
[2022-05-15] MEDS: GABAPENTIN 300 MG CAPSULE PO SCH (06:02)
[2022-05-15] MEDS: busPIRone HCL 5 MG TABLET PO SCH (06:03)
[2022-05-15 09:09] VITALS: BP 123/81; PULSE 82; RESP 19; TEMP 97.8
[2022-05-15] MEDS: amLODIPine BESYLATE 10 MG TABLET (FP) PO SCH (09:32)
[2022-05-15] MEDS: LISINOPRIL 20 MG TABLET PO SCH (09:32)
[2022-05-15] MEDS: PRENATAL VITAMINS W/ FOLIC ACID TABLET (FP) PO SCH (09:32)
[2022-05-15] MEDS: FAMOTIDINE 20 MG TABLET PO SCH (09:32)
== END 2022-05-15 10:32 | disposition other institution (70) | DRG 897 ==
LOC: YASAS 11:14 → Y3N 12:52
PROVIDERS: ADMIT Allergy & Immunology; ATTEND Surgery
PROC: HZ2ZZZZ Detoxification Services for Substance Abuse Treatment (ICD-10-PCS; principal; 2022-05-11)
DX: F10.230 Alcohol dependence with withdrawal, uncomplicated (principal); Z68.41 Body mass index [BMI] 40.0-44.9, adult; F25.9 Schizoaffective disorder, unspecified; F31.9 Bipolar disorder, unspecified; F41.9 Anxiety disorder, unspecified; I10 Essential (primary) hypertension; K21.9 Gastro-esophageal reflux disease without esophagitis; H26 Other cataract; E66.01 Morbid (severe) obesity due to excess calories; Z62.810 Personal history of physical and sexual abuse in childhood
CPT/HCPCS: 36415; 80053; 82140; 85027; 86780; 87811; C9803-CS; U0003; U0005

== ENCOUNTER 2022-10-17 15:00 | Inpatient (IN) | payer OTHER ==
[2022-10-17 17:58] VITALS: BMI 40.0
[2022-10-17] MEDS ORDERED: BENZOCAINE/MENTHOL (CHLORASEPTIC ) LOZENGE MM PRN (19:51)
[2022-10-17] MEDS ORDERED: BENZONATATE 200 MG CAPSULE PO PRN (19:51)
[2022-10-17] MEDS ORDERED: chlordiazePOXIDE HCL 25 MG CAPSULE PO PRN (19:51)
[2022-10-17] MEDS ORDERED: IBUPROFEN 400 MG TABLET (FP) PO PRN (19:51)
[2022-10-17] MEDS ORDERED: BISMUTH SUBSALICYLATE 524 MG/30 ML PO PRN (19:51)
[2022-10-17] MEDS ORDERED: DICYCLOMINE HCL 10 MG CAPSULE PO PRN (19:51)
[2022-10-17] MEDS ORDERED: guaiFENesin 600 MG TABLET.ER (FP) PO PRN (19:51)
[2022-10-17] MEDS ORDERED: MAGNESIUM HYDROX 2400MG/30ML ORAL SUSPENSION 30 ML CUP PO PRN (19:51)
[2022-10-17] MEDS ORDERED: POLYETHYLENE GLYCOL (HEALTHYLAX) 3350 17 GM PACKET PO PRN (19:51)
[2022-10-17] MEDS ORDERED: NALOXONE HCL (KLOXXADO) 8 MG SPRAY NS PRN (19:51)
[2022-10-17] MEDS ORDERED: MAG HYDROX/AL HYDROX/SIMETH 30 ML UNIT-DOSE CUP PO PRN (19:51)
[2022-10-17] MEDS ORDERED: NALOXONE HCL 0.4 MG/ML VIAL IM PRN (19:51)
[2022-10-17] MEDS ORDERED: LOPERAMIDE HCL 2 MG CAPSULE PO PRN (19:51)
[2022-10-17] MEDS ORDERED: ACETAMINOPHEN 325 MG TABLET (FP) PO PRN (19:51)
[2022-10-17] MEDS ORDERED: chlordiazePOXIDE HCL 25 MG CAPSULE ONE (20:04)
[2022-10-17] MEDS ORDERED: MAG HYDROX/AL HYDROX/SIMETH 30 ML UNIT-DOSE CUP ONE (20:04)
[2022-10-17] MEDS ORDERED: MELATONIN 5 MG TABLETS PO SCH (22:00)
[2022-10-18] MEDS: chlordiazePOXIDE HCL 25 MG CAPSULE PO SCH ×5 (03:59→22:35)
[2022-10-18] MEDS: THIAMINE HCL 100 MG TABLET (FP) PO SCH ×2 (05:13→22:35)
[2022-10-18] MEDS ORDERED: MECLIZINE HCL 25 MG TABLET (FP) PO SCH (09:15)
[2022-10-18] MEDS ORDERED: MECLIZINE HCL 25 MG TABLET (FP) PO PRN (09:28)
[2022-10-18] MEDS: PRENATAL VITAMINS W/ FOLIC ACID TABLET (FP) PO SCH (10:24)
[2022-10-18] MEDS: FAMOTIDINE 20 MG TABLET PO SCH ×2 (10:24→22:35)
[2022-10-18] MEDS: LISINOPRIL 20 MG TABLET PO SCH (10:24)
[2022-10-18] MEDS: amLODIPine BESYLATE 10 MG TABLET (FP) PO SCH (10:24)
[2022-10-18] MEDS: ONDANSETRON *ODT* 4 MG TABLET SL PRN (10:25)
[2022-10-18 10:37] LABS: HEMATOCRIT 41.4 % (32.4-45.2); HEMOGLOBIN 13.6 GM/dL (10.7-15.3); MCH 29.5 pg (25.7-33.7); MCHC 32.8 g/dl (32.0-36.0); MEAN CELL VOLUME 90.1 fl (80-96); MEAN PLT VOLUME 7.6 fl (7.5-11.1); PLATELET COUNT 232 10^3/uL (134-434); RBC 4.59 M/mm3 (3.60-5.2); RDW 15.2 % (11.6-15.6); WHITE BLOOD COUNT 7.1 K/mm3 (4.0-10.0)
[2022-10-18 10:46] LABS: POTASSIUM 3.6 mmol/L (3.5-5.1)
[2022-10-18 10:53] LABS: ALBUMIN 3.6 g/dl (3.4-5.0); BLOOD UREA NITROGEN 12.1 mg/dL (7-18); CREATININE 0.8 mg/dL (0.55-1.3)
[2022-10-18 10:55] LABS: BILIRUBIN,TOTAL 0.7 mg/dL (0.2-1); CALCIUM 8.6 mg/dL (8.5-10.1); TOT PROT 6.6 g/dl (6.4-8.2)
[2022-10-18] MEDS: SERTRALINE HCL 25 MG TABLET (FP) PO SCH (11:03)
[2022-10-18] MEDS: GABAPENTIN 300 MG CAPSULE PO SCH ×2 (13:45→22:37)
[2022-10-18] MEDS: METHOCARBAMOL 500 MG TABLET PO PRN (17:18)
[2022-10-18] MEDS: IBUPROFEN 600 MG TABLET (FP) PO PRN (21:46)
[2022-10-18] MEDS: AMOX TR/POT CLAV 875MG/125MG TABLETS (FP) PO SCH (21:54)
[2022-10-18] MEDS: QUEtiapine FUMARATE 200 MG TABLET PO SCH (22:37)
[2022-10-19] MEDS: GABAPENTIN 300 MG CAPSULE PO SCH ×3 (05:44→22:01)
[2022-10-19] MEDS: chlordiazePOXIDE HCL 25 MG CAPSULE PO SCH ×4 (05:44→22:01)
[2022-10-19] MEDS: IBUPROFEN 600 MG TABLET (FP) PO PRN ×2 (06:14→17:21)
[2022-10-19] MEDS: ONDANSETRON *ODT* 4 MG TABLET SL PRN (06:15)
[2022-10-19] MEDS: AMOX TR/POT CLAV 875MG/125MG TABLETS (FP) PO SCH ×2 (08:23→17:19)
[2022-10-19] MEDS: LISINOPRIL 20 MG TABLET PO SCH (09:39)
[2022-10-19] MEDS: amLODIPine BESYLATE 10 MG TABLET (FP) PO SCH (09:39)
[2022-10-19] MEDS: PRENATAL VITAMINS W/ FOLIC ACID TABLET (FP) PO SCH (10:17)
[2022-10-19] MEDS: FAMOTIDINE 20 MG TABLET PO SCH ×2 (10:17→22:01)
[2022-10-19] MEDS: SERTRALINE HCL 25 MG TABLET (FP) PO SCH (10:39)
[2022-10-19] MEDS: QUEtiapine FUMARATE 200 MG TABLET PO SCH (22:01)
[2022-10-19] MEDS: THIAMINE HCL 100 MG TABLET (FP) PO SCH (22:01)
[2022-10-19] MEDS: METHOCARBAMOL 500 MG TABLET PO PRN (22:02)
[2022-10-20] MEDS ORDERED: chlordiazePOXIDE HCL 10 MG CAPSULE PO PRN
[2022-10-20] MEDS: GABAPENTIN 300 MG CAPSULE PO SCH ×3 (05:44→22:03)
[2022-10-20] MEDS: chlordiazePOXIDE HCL 10 MG CAPSULE PO SCH ×4 (05:44→22:02)
[2022-10-20] MEDS: AMOX TR/POT CLAV 875MG/125MG TABLETS (FP) PO SCH ×2 (07:24→17:20)
[2022-10-20] MEDS: LISINOPRIL 20 MG TABLET PO SCH (10:16)
[2022-10-20] MEDS: FAMOTIDINE 20 MG TABLET PO SCH ×2 (10:16→22:03)
[2022-10-20] MEDS: PRENATAL VITAMINS W/ FOLIC ACID TABLET (FP) PO SCH (10:16)
[2022-10-20] MEDS: amLODIPine BESYLATE 10 MG TABLET (FP) PO SCH (10:16)
[2022-10-20] MEDS: SERTRALINE HCL 25 MG TABLET (FP) PO SCH (10:16)
[2022-10-20] MEDS: QUEtiapine FUMARATE 200 MG TABLET PO SCH (22:03)
[2022-10-20] MEDS: THIAMINE HCL 100 MG TABLET (FP) PO SCH (22:03)
[2022-10-20] MEDS: METHOCARBAMOL 500 MG TABLET PO PRN (22:04)
[2022-10-21] MEDS: hydrOXYzine PAMOATE 25 MG CAPSULE (FP) PO PRN ×2 (02:29→15:03)
[2022-10-21] MEDS: GABAPENTIN 300 MG CAPSULE PO SCH ×3 (05:32→22:03)
[2022-10-21] MEDS: chlordiazePOXIDE HCL 10 MG CAPSULE PO SCH ×2 (05:41→17:06)
[2022-10-21] MEDS: AMOX TR/POT CLAV 875MG/125MG TABLETS (FP) PO SCH ×2 (07:02→18:04)
[2022-10-21] MEDS: amLODIPine BESYLATE 10 MG TABLET (FP) PO SCH (10:09)
[2022-10-21] MEDS: PRENATAL VITAMINS W/ FOLIC ACID TABLET (FP) PO SCH (10:09)
[2022-10-21] MEDS: SERTRALINE HCL 25 MG TABLET (FP) PO SCH (10:09)
[2022-10-21] MEDS: LISINOPRIL 20 MG TABLET PO SCH (10:09)
[2022-10-21] MEDS: FAMOTIDINE 20 MG TABLET PO SCH ×2 (10:09→22:03)
[2022-10-21] MEDS: METHOCARBAMOL 500 MG TABLET PO PRN ×2 (15:03→22:03)
[2022-10-21] MEDS ORDERED: QUEtiapine FUMARATE 400 MG TABLET PO SCH (22:00)
[2022-10-21] MEDS: THIAMINE HCL 100 MG TABLET (FP) PO SCH (22:03)
[2022-10-22] MEDS ORDERED: chlordiazePOXIDE HCL 10 MG CAPSULE PO ONE (05:00)
[2022-10-22] MEDS: GABAPENTIN 300 MG CAPSULE PO SCH (05:59)
[2022-10-22 06:25] VITALS: BP 109/72; PULSE 88; RESP 17; TEMP 98.5
[2022-10-22] MEDS: AMOX TR/POT CLAV 875MG/125MG TABLETS (FP) PO SCH (07:17)
[2022-10-22] MEDS: LISINOPRIL 20 MG TABLET PO SCH (09:50)
[2022-10-22] MEDS: amLODIPine BESYLATE 10 MG TABLET (FP) PO SCH (09:50)
[2022-10-22] MEDS: FAMOTIDINE 20 MG TABLET PO SCH (09:57)
[2022-10-22] MEDS: SERTRALINE HCL 25 MG TABLET (FP) PO SCH (09:57)
[2022-10-22] MEDS: PRENATAL VITAMINS W/ FOLIC ACID TABLET (FP) PO SCH (09:57)
== END 2022-10-22 10:00 | disposition home or self-care (01) | DRG 897 ==
LOC: YASAS 15:00 → Y6N 10-18 02:40
PROVIDERS: ADMIT Allergy & Immunology; ATTEND Surgery
PROC: HZ2ZZZZ Detoxification Services for Substance Abuse Treatment (ICD-10-PCS; principal; 2022-10-18)
DX: F10.230 Alcohol dependence with withdrawal, uncomplicated (principal); Z68.41 Body mass index [BMI] 40.0-44.9, adult; F10.282 Alcohol dependence with alcohol-induced sleep disorder; F25.8 Other schizoaffective disorders; F43.10 Post-traumatic stress disorder, unspecified; I10 Essential (primary) hypertension; K21.9 Gastro-esophageal reflux disease without esophagitis; I34.1 Nonrheumatic mitral (valve) prolapse; H26 Other cataract; E66.01 Morbid (severe) obesity due to excess calories; S71.151D Open bite, right thigh, subsequent encounter; W54.0XXD Bitten by dog, subsequent encounter; Z56.0 Unemployment, unspecified
CPT/HCPCS: 36415; 80053; 85025; 85027; 85610; 85730; 86780; 87635; 87811; 93971-TC; 99282-25; 99285-25; Q0162